=== PATIENT | female | born 1945 | race Caucasian/White ===

== ENCOUNTER 2017-01-13 11:56 | Emergency (ER) | payer MEDICARE ==
[~2017-01-13] VITALS: Ht 157.5 cm; Wt 73.2 kg
[~2017-01-13 11:56] MED LIST: ACET-2890 PO; ASCO-324 PO; BUPR-105 PO; CALC-727 PO; CHOL100055 PO; DILT180C51 PO; FLEC100T2 PO; HYDR-3989 PO; HYDR-4246 PO; RIVA20TA PO; VITA-321 PO; [UNRECOGNIZED DRUG - CODE] PO
[2017-01-13 11:58] VITALS: TEMP 97.8; Ht 157.5 cm; Wt 73.2 kg
--- NOTE | 2017-01-13 12:00 | NUR ---
HX PT IS POOR HISTORIAN. SHE KEEPS ANSWERING "I DON'T KNOW."
--- OUTSIDE RECORDS SUMMARY | 2017-01-13 12:00 | XMS REPORT | Referral Summary ---
Author Author [facility] Organization [facility] Address Unknown Phone Unavailable Care Team Providers Care Reconnaissance Crewmember Name Role Phone Rosalina Day Primary Care Physician [phone] Encounter VC Date(s): 05/16/16 - 05/16/16 [facility] [address] [place] [address] Discharge Disposition: 01-Home or Self Care Attending Physician: Aleks Chapa PA-C Admitting Physician: Aleks Chapa PA-C Vital Signs No data available for this section Problem List Condition Effective Dates Status Health Status Informant Polycythemia(Confirm Active ed) Gastric Active ulcer(Confirmed) History of TIA Active (transient ischemic attack)(Confirmed) Obesity(Confirmed) Active patient Paroxysmal Active a-fib(Confirmed) Tobacco Active patient user(Confirmed) Allergies, Adverse Reactions, Alerts Substance Reaction Severity Status penicillin Active Medications Arthritis Pain mg, Oral, q6hr, 0 Refill(s) Start Date: 07/25/15 Status: Ordered Calcium 600+D 2 tabs, Oral, TID, 0 Refill(s) Start Date: 11/23/14 Status: Ordered diltiazem 180 mg/24 hours oral capsule, extended release 180 mg 1 caps, Oral, Daily, # 90 caps, 3 Refill(s), [facility], 1 caps Oral Daily Start Date: 09/25/15 Status: Ordered flecainide 150 mg oral tablet 150 mg 1 tabs, Oral, q12hr, [facility]S [facility] [id number] GETS 90 TABS PER FILL FOR $35, # 90 tabs, 6 Refill(s), Pharmacy: [facility], 1 tabs Oral q12hr,Instr:[facility]LL[facility] [id number]; GETS 90 TABS PER FILL FOR $35 Start Date: 12/26/15 Status: Ordered Lamar 5 mg-325 mg oral tablet 1-2 tabs, Oral, q6hr, as needed for pain, # 30 tabs, 0 Refill(s) Start Date: 11/26/15 Status: Ordered ohm Allergy Relief 10 mg oral tablet 1 tabs, Oral, Daily, # 15 tabs, 0 Refill(s) Start Date: 11/23/14 Status: Ordered potassium gluconate 595 mg oral tablet 1 TABLET, Oral, BID, 0 Refill(s) Start Date: 01/05/15 Status: Ordered Vitamin C 500 mg oral tablet, chewable 1 tabs, Chewed, Daily, # 30 tabs, 0 Refill(s) Start Date: 01/05/15 Status: Ordered Vitamin D with Minerals oral tablet 1 tabs, Oral, Daily, # 30 tabs, 0 Refill(s) Start Date: 05/24/15 Status: Ordered Vitamin D3 1000 intl units oral capsule Intl_Units caps, Oral, Daily, 0 Refill(s) Start Date: 07/25/15 Status: Ordered vitamin E 400 Intl_Units, Oral, Daily, 0 Refill(s) Start Date: 11/20/14 Status: Ordered Walker (DME) DME Item indefinate, See Instructions, # 1 Each, 0 Refill(s), Supply Start Date: 05/16/16 Status: Ordered Xarelto 20 mg oral tablet 20 mg 1 tabs, Oral, qPM, # 30 tabs, 0 Refill(s), Pharmacy: [facility], 1 tabs Oral qPM Start Date: 05/05/16 Status: Ordered Zyban 150 mg/12 hours oral tablet, extended release 150 mg 1 tabs, Oral, BID, # 60 tabs, 2 Refill(s), Pharmacy: [facility], 1 tabs Oral BID Start Date: 12/03/15 Status: Ordered Results No data available for this section Immunizations No data available for this section Procedures Procedure Date Related Diagnosis Body Site Colonoscopy normal1 01/04/15 Esophagogastroduodenoscopy and biopsy2 01/04/15 TIA3 2001 Arthroscopy4 1998 Ablation5 1992 Breast lumpectomy6 Cataract extraction and insertion of intraocular lens7 Tonsillectomy 1Diverticulosis. Repeat in 10 years 2No Jaimes's, CLOtest a negative, benign gastric polyp. 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
--- OUTSIDE RECORDS SUMMARY | 2017-01-13 12:01 | XMS REPORT | Referral Summary ---
Author Author [facility] Organization [facility] Address Unknown Phone Unavailable Care Team Providers Care Supply Chain Project Manager Name Role Phone Rosalina Day Primary Care Physician [phone] Encounter VC Date(s): 05/26/16 - 05/26/16 [facility] [address] [place] [address] Discharge Diagnosis: Ankle sprain Discharge Disposition: 01-Home or Self Care Attending Physician: Cora Day DO Admitting Physician: Cora Day DO Vital Signs Most recent to 1 oldest [Reference Range]: Temperature Tympanic 36.9 degC [36.6-38.1 degC] (05/26/16 1:35 PM) Peripheral Pulse 78 bpm Rate [60-100 bpm] (05/26/16 1:35 PM) Respiratory Rate 18 br/min [14-20 br/min] (05/26/16 1:35 PM) Blood Pressure 120/70 mmHg [90-140/60-90 mmHg] (05/26/16 1:35 PM) SpO2 98 % (05/26/16 1:35 PM) Problem List Condition Effective Dates Status Health [...] Daily, # 90 caps, 3 Refill(s), Pharmacy: [facility], 1 caps Oral Daily Start Date: 09/25/15 Status: Ordered flecainide 150 mg oral tablet 150 mg 1 tabs, Oral, q12hr, [facility]S [facility] [id number] GETS 90 TABS PER FILL FOR $35, # 90 tabs, 6 Refill(s), Pharmacy: [facility], 1 tabs Oral q12hr,Instr:[facility] [id number]; GETS 90 TABS PER FILL FOR $35 Start Date: 12/26/15 Status: Ordered [place] 5 mg-325 mg oral tablet 1-2 tabs, [...] 0 Refill(s) Start Date: 11/20/14 Status: Ordered Xarelto 20 mg oral tablet 20 mg 1 tabs, Oral, qPM, # 30 tabs, 0 Refill(s), Pharmacy: [facility], 1 tabs Oral qPM Start Date: 05/05/16 Status: Ordered Zyban 150 mg/12 hours oral tablet, extended release 150 mg 1 tabs, Oral, BID, # 60 tabs, 2 Refill(s), Pharmacy: [facility], 1 tabs Oral BID Start [...] meniscus tear 5Ablation of accessory pathway for Ngluk-Ilzcugizv-Jcure syndrome 6Left breast 7Bilateral Social History Social History Type Response Smoking Status Current every day smoker; Type: Cigarettes; Tobacco use per day: Pack Assessment and Plan Extracted from: Title: Office Visit Note Author: Cora Day DO Date: 05/26/16 Assessment/Plan Ankle sprain Patient was able to weight-bear with no pain after removal of the brace. We discussed that she can use the brace on an as-needed basis from now on. We discussed that she should fill her bathtub with water and then do range of motion exercises underneath the water for rehabilitation of her ankle. She is to return to clinicwith any further symptomatology. Ordered: Office Visit Level 3 Est [id number]
--- OUTSIDE RECORDS SUMMARY | 2017-01-13 12:01 | XMS REPORT | Referral Summary ---
Author Author [facility] Organization [facility] Address Unknown Phone Unavailable Care Team Providers Care Precision Grinder Name Role Phone Rosalina Day Primary Care Physician [phone] Encounter VC Date(s): 05/24/15 - 05/24/15 [facility] [address] [place], [place] [address] Discharge Diagnosis: Paroxysmal a-fib Discharge Disposition: 01-Home or Self Care Attending Physician: Zoraida Ortiz MD Admitting Physician: Zoraida Ortiz MD Referring Physician: Onel Burris MD Vital Signs Most recent to 1 oldest [Reference Range]: Peripheral Pulse 64 bpm Rate [60-100 bpm] (05/24/15 11:25 AM) Blood Pressure 118/62 mmHg [90-140/60-90 mmHg] (05/24/15 11:25 AM) Problem List Condition Effective Dates Status Health [...] Daily, # 90 caps, 3 Refill(s), Pharmacy: [facility], 1 caps Oral Daily Start Date: 09/25/15 Status: Ordered flecainide 100 mg oral tablet 150 mg 1.5 tabs, Oral, q12hr, # 150 tabs, 5 Refill(s), Pharmacy: [facility], 1.5 tabs Oral q12hr Start Date: 02/23/15 Status: Ordered [place] 5 mg-325 mg oral tablet 1-2 tabs, [...] Status: Ordered Xarelto 20 mg oral tablet 1 tabs, Oral, qPM, # 30 tabs, 6 Refill(s), Pharmacy: [facility], 1 tabs Oral qPM Start Date: 01/05/15 Status: Ordered Zyban 150 mg/12 hours oral tablet, extended release 150 mg 1 tabs, Oral, BID, # 60 tabs, 2 Refill(s), Pharmacy: [facility], 1 tabs Oral BID Start [...] meniscus tear 5Ablation of accessory pathway for Vpeeo-Mcbzsvqki-Sjlik syndrome 6Left breast 7Bilateral Social History Social History Type Response Smoking Status Current every day smoker; Type: Cigarettes; Tobacco use per day: Pack Assessment and Plan Extracted from: Title: Office Visit Note Author: Zoraida Ortiz MD Date: 05/24/15 Assessment/Plan Paroxysmal a-fib Ordered: Return to Clinic Referrals to Other Providers Referred by: Zoraida Ortiz MD
--- OUTSIDE RECORDS SUMMARY | 2017-01-13 12:01 | XMS REPORT | Referral Summary ---
Author Author [facility], [facility] Organization [facility], [facility] Address Unknown Phone Unavailable Care Team Providers Care Portable Track Crew Chief Name Role Phone Rosalina Day Primary Care Physician [phone] Encounter VC Date(s): 05/16/16 - 05/16/16 [facility] [address] [place] [address] Discharge Diagnosis: Sprain of anterior talofibular ligament of right ankle Discharge Diagnosis: Fall at home Discharge Disposition: 01-Home or Self Care Attending Physician: Aleks Chapa PA-C Admitting Physician: Aleks Chapa PA-C Vital Signs Most recent to 1 oldest [Reference Range]: Peripheral Pulse 107 bpm Rate [60-100 bpm] *HI* (05/16/16 4:45 PM) Blood Pressure 142/80 mmHg [90-140/60-90 mmHg] *HI* (05/16/16 4:45 PM) SpO2 93 % (05/16/16 4:45 PM) Problem List Condition Effective Dates Status [...] Daily, # 90 caps, 3 Refill(s), Pharmacy: [facility], 1 caps Oral Daily Start Date: 09/25/15 Status: Ordered flecainide 150 mg oral tablet 150 mg 1 tabs, Oral, q12hr, [facility]ILLS [facility] [id number] GETS 90 TABS PER FILL FOR $35, # 90 tabs, 6 Refill(s), Pharmacy: [facility], 1 tabs Oral q12hr,Instr:[facility]LL[facility] [id number]; GETS 90 TABS PER FILL FOR $35 Start Date: 12/26/15 Status: Ordered [place] 5 mg-325 mg oral tablet 1-2 tabs, [...] 0 Refill(s) Start Date: 11/20/14 Status: Ordered Jason (DME) DME Item indefinate, See Instructions, # 1 Each, 0 Refill(s), Supply Start Date: 05/16/16 Status: Ordered Xarelto 20 mg oral tablet 20 mg 1 tabs, Oral, qPM, # 30 tabs, 0 Refill(s), Pharmacy: [facility], 1 tabs Oral qPM Start Date: 05/05/16 Status: Ordered Zyban 150 mg/12 hours oral tablet, extended release 150 mg 1 tabs, Oral, BID, # 60 tabs, 2 Refill(s), Pharmacy: [facility], 1 tabs Oral BID Start [...] meniscus tear 5Ablation of accessory pathway for Bhufi-Ginwjehrj-Xynjw syndrome 6Left breast 7Bilateral Social History Social History Type Response Smoking Status Current every day smoker; Type: Cigarettes; Tobacco use per day: Pack Assessment and Plan Extracted from: Title: Right foot and ankle injury Author: Aleks Chapa PA-C Date: 09/19 Assessment/Plan Acute ankle pain Recommended rest, ice, elevation. Recommended resumption of use of [place] as needed for the pain. Ordered: XR Ankle Complete Right XR Foot Complete Right Fall at home Sprain of anterior talofibular ligament of right ankle Pa tient wasfit witha rocket sock;handout was provided withstretching and exercises to begin his pain improves. Diagnosis and treatment discussed. Patient advised to follow up with PCP in 7-10 days. Patient stable upon discharge, alert and orientated with no apparent distress, and indicated understanding of discharge instructions. If symptoms worsen at any time, patient will go to the nearest ER for further evaluation.
--- OUTSIDE RECORDS SUMMARY | 2017-01-13 12:01 | XMS REPORT | Referral Summary ---
Author Author [facility] Organization [facility] Address Unknown Phone Unavailable Care Team Providers Care Train Station Server Name Role Phone Rupesh Burris Primary Care Physician [phone] Encounter Date(s): 02/16/15 - 02/16/15 [facility] [address] [place], [place] [address] Discharge Diagnosis: AF (paroxysmal atrial fibrillation) Discharge Disposition: 01-Home or Self Care Attending Physician: Rosio Thibodeaux APRN Admitting Physician: Rosio Thibodeaux APRN Referring Physician: Onel Burris MD Vital Signs Most recent to 1 oldest [Reference Range]: Peripheral Pulse 60 bpm Rate [60-100 bpm] (02/16/15 10:24 AM) Blood Pressure 132/62 mmHg [90-140/60-90 mmHg] (02/16/15 10:24 AM) Problem List Condition Effective Dates Status Health Status Informant Polycythemia(Confirm Active ed) Gastric Active ulcer(Confirmed) History of TIA Active (transient ischemic attack)(Confirmed) Obesity(Confirmed) Active patient Paroxysmal Active a-fib(Confirmed) Tobacco Active patient user(Confirmed) Allergies, Adverse Reactions, Alerts Substance Reaction Severity Status penicillin Active Medications Arthritis Pain mg, Oral, q6hr, 0 Refill(s) Start Date: 07/25/15 Status: Ordered Aspir 81 mg, Oral, Daily, 0 Refill(s) Start Date: 05/24/15 Status: Ordered aspirin 81 mg, 0 Refill(s) Start Date: 12/13/14 Status: Ordered Calcium 600+D 2 tabs, Oral, TID, 0 Refill(s) Start Date: 11/23/14 Status: Ordered diltiazem 180 mg/24 hours oral capsule, extended release 180 mg 1 caps, Oral, Daily, # 30 caps, 6 Refill(s), Pharmacy: [facility], 1 caps Oral Daily Start Date: 02/16/15 Status: Ordered flecainide 100 mg oral tablet 150 mg 1.5 tabs, Oral, q12hr, # 150 tabs, 5 Refill(s), Pharmacy: [facility], 1.5 tabs Oral q12hr Start Date: 02/23/15 Status: Ordered ohm Allergy Relief 10 mg oral tablet 1 tabs, Oral, Daily, # 15 tabs, 0 Refill(s) Start Date: 11/23/14 Status: Ordered omeprazole 20 mg oral delayed release capsule See Instructions, TAKE ONE CAPSULE BY MOUTH ONCE DAILY, # 60 caps, eRx: [facility], TAKE ONE CAPSULE BY MOUTH ONCE DAILY Start Date: 07/27/15 Status: Ordered potassium gluconate 595 mg oral tablet 1 TABLET, Oral, BID, 0 Refill(s) Start Date: 01/05/15 Status: Ordered Vitamin C 250 mg, Oral, Daily, 0 Refill(s) Start Date: 05/24/15 Status: Ordered Vitamin C 500 mg oral [...] qPM, # 30 tabs, 6 Refill(s), Pharmacy: [facility], 1 tabs Oral qPM Start Date: 01/05/15 Status: Ordered Results No data available for [...] meniscus tear 5Ablation of accessory pathway for Noocn-Eoukoetxc-Yudzb syndrome 6Left breast 7Bilateral Social History Social History Type Response Smoking Status Current every day smoker; Type: Cigarettes; Tobacco use per day: Pack Assessment and Plan Extracted from: Title: Ambulatory Patient Education Author: Rosio Thibodeaux [employer] Date: Family Medicine Atrial Fibrillation Atrial fibrillation is a condition that causes your heart to beat irregularly. It may also cause your heart to beat faster than normal. Atrial fibrillation can prevent your heart from pumping blood normally. It increases your risk of stroke and heart problems. HOME CARE Take medications as told by your doctor. Only take medications that your doctor says are safe. Some medications can make the condition worse or happen again. If blood thinners were prescribed by your doctor, take them exactly as told. Too much can cause bleeding. Too little and you will not have the needed protection against stroke and other problems. Perform blood tests at home if told by your doctor. Perform blood tests exactly as told by your doctor. Do not drink alcohol. Do not drink beverages with caffeine such as coffee, soda, and some teas. Maintain a healthy weight. Do not use diet pills unless your doctor says they are safe. They may make heart problems worse. Follow diet instructions as told by your doctor. Exercise regularly as told by your doctor. Keep all follow-up appointments. GET HELP RIGHT AWAY IF: You have chest or belly (abdominal ) pain. You feel sick to your stomach (nauseous ) You suddenly have swollen feet and ankles. You feel dizzy. You face, arms, or legs feel numb or weak. There is a change in your vision or speech. You notice a change in the speed, rhythm, or strength of your heartbeat. You suddenly begin peeing (urinating ) more often. You get tired more easily when moving or exercising. MAKE SURE YOU: Understand these instructions. Will watch your condition. Will get help right away if you are not doing well or get worse. Document Released: 06/30/2009 Document Revised: 01/16/2014 Document Reviewed: [facility] Patient Information 2014 [employer] [facility]. No follow up information was provided. Extracted from: Title: Office Visit Note Author: Rosio Thibodeaux APRN Date: 02/16/15 Assessment/Plan AF (paroxysmal atrial fibrillation) Referrals to Other Providers Referred by: Rosio Thibodeaux APRN
--- OUTSIDE RECORDS SUMMARY | 2017-01-13 12:01 | XMS REPORT | Referral Summary ---
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 Discharge Diagnosis: History of TIA (transient ischemic attack) Discharge Diagnosis: Tobacco user Discharge Disposition: 01-Home or Self Care Attending Physician: Zoraida Ortiz MD Admitting Physician: Zoraida Ortiz MD Vital Signs Most recent to 1 oldest [Reference Range]: Peripheral Pulse 68 bpm Rate [60-100 bpm] (05/27/16 11:19 AM) Blood Pressure 126/70 mmHg [90-140/60-90 mmHg] (05/27/16 11:19 AM) Problem List Condition Effective Dates Status Health Status Informant Polycythemia(Confirm Active ed) Gastric Active ulcer(Confirmed) History of TIA Active (transient ischemic attack)(Confirmed) Obesity(Confirmed) Active patient Paroxysmal Active a-fib(Confirmed) Tobacco Active patient user(Confirmed) Allergies, Adverse Reactions, Alerts Substance Reaction Severity Status penicillin Active Medications Arthritis Pain 650 mg, Oral, BID, 0 Refill(s) Start Date: 07/25/15 Status: Ordered Calcium 600+D 2 tabs, Oral, TID, 0 Refill(s) Start Date: 11/23/14 Status: Ordered diltiazem 180 mg/24 hours oral capsule, extended release 180 mg 1 caps, Oral, Daily, # 90 caps, 3 Refill(s), Pharmacy: [facility], 1 caps Oral Daily Start Date: 09/25/15 Status: Ordered flecainide 150 mg oral tablet 150 mg 1 tabs, Oral, q12hr, FILLS [facility] [id number] GETS 90 TABS PER FILL FOR $35, # 90 tabs, 6 Refill(s), Pharmacy: [facility], 1 tabs Oral q12hr,Instr:[facility]LLS [facility] [id number]; GETS 90 TABS PER FILL FOR $35 Start Date: 12/26/15 Status: Ordered [place] 5 mg-325 mg oral tablet 1-2 tabs, Oral, q6hr, as needed for pain, # 30 tabs, 0 Refill(s) Start Date: 11/26/15 Status: Ordered ohm Allergy Relief 10 mg oral tablet 1 tabs, Oral, Daily, # 15 tabs, 0 Refill(s) Start Date: 11/23/14 Status: Ordered potassium gluconate 595 mg oral tablet 2 tabs, Oral, Daily, 0 Refill(s) Start Date: 01/05/15 Status: Ordered Tums Ultra 1000 mg oral tablet, chewable See Instructions, 1,000 mg 2-3 tabs daily, 0 Refill(s) Start Date: 05/27/16 Status: Ordered Vitamin C 500 mg oral tablet, chewable 1 tabs, Chewed, Daily, # 30 tabs, 0 Refill(s) Start Date: 01/05/15 Status: Ordered Vitamin D with Minerals oral tablet 1 tabs, Oral, Daily, # 30 tabs, 0 Refill(s) Start Date: 05/24/15 Status: Ordered Vitamin D3 1000 intl units oral capsule 1,000 Intl_Units 1 caps, Oral, Daily, 0 Refill(s) Start Date: 07/25/15 Status: Ordered vitamin E 400 Intl_Units, Oral, Daily, 0 Refill(s) Start Date: 11/20/14 Status: Ordered Xarelto 20 mg oral tablet 20 mg 1 tabs, Oral, qPM, # 30 tabs, 0 Refill(s), Pharmacy: [facility], 1 tabs Oral qPM Start Date: 05/05/16 Status: Ordered Zyban 150 mg/12 hours oral tablet, extended release 150 mg 1 tabs, Oral, BID, # 60 tabs, 2 Refill(s), Pharmacy: [facility], 1 tabs Oral BID Start [...] meniscus tear 5Ablation of accessory pathway for Xkbgf-Lczwarbee-Opsix syndrome 6Left breast 7Bilateral Social History Social History Type Response Smoking Status Current every day smoker; Type: Cigarettes; Tobacco use per day: Pack Assessment and Plan Extracted from: Title: Ambulatory Patient Education Author: Zoraida Ortiz MD Date: Cardiovascular Atrial Fibrillation Atrial fibrillation is a condition [...] doctor. Keep all follow-up appointments. GET HELP IF: You notice a change in the speed, rhythm, or strength of your heartbeat. You suddenly begin peeing (urinating) more often. You get tired more easily when moving or exercising. GET HELP RIGHT AWAY IF: You have chest or belly (abdominal) pain. You feel sick to your stomach (nauseous). You are short of breath. You suddenly have swollen feet and ankles. You feel dizzy. You face, arms, or legs feel numb or weak. There is a change in your vision or speech. MAKE SURE YOU: Understand these instructions. Will watch your condition. Will get help right away if you are not doing well or get worse. This information is not intended to replace advice given to you by your health care provider. Make sure you discuss any questions you have with your health care provider. Document Released: 06/30/2009 Document Revised: 10/12/2015 Document Reviewed: [facility] Patient Information 2016 [employer] [facility]. No follow up information was provided. Extracted from: Title: Office Visit Note Author: Zoraida Ortiz MD Date: 05/27/16 Assessment/Plan 1.Paroxysmal a-fib Ordered: Office Visit Level 3 Est [id number] Return to Clinic 2.History of TIA (transient ischemic attack) 3.Tobacco user 4.S/p ablation of accessory bypass tract Dictation performed with Blooie voice recognition Referrals to Other Providers Referred by: Zoraida Ortiz MD
--- OUTSIDE RECORDS SUMMARY | 2017-01-13 12:01 | XMS REPORT | Referral Summary ---
Author Author [facility], Family Medicine Organization [facility] Address Unknown Phone Unavailable Care Team Providers Care Operations Forester Name Role Phone Rosalina Day Primary Care Physician [phone] Encounter VC Date(s): 12/03/15 - 12/03/15 [facility], [address] [place] [id number] Discharge Diagnosis: Tobacco user Discharge Diagnosis: Paroxysmal a-fib Discharge Diagnosis: Musculoskeletal chest pain Discharge Disposition: 01-Home or Self Care Attending Physician: Cora Day DO Admitting Physician: Cora Day DO Vital Signs Most recent to 1 oldest [Reference Range]: Peripheral Pulse 70 bpm Rate [60-100 bpm] (12/03/15 9:25 AM) Respiratory Rate 18 br/min [14-20 br/min] (12/03/15 9:25 AM) Blood Pressure 112/68 mmHg [90-140/60-90 mmHg] (12/03/15 9:25 AM) SpO2 93 % (12/03/15 9:25 AM) Problem List Condition Effective Dates Status [...] Daily, # 90 caps, 3 Refill(s), Pharmacy: [facility], 1 caps Oral Daily Start Date: 09/25/15 Status: Ordered flecainide 100 mg oral tablet 150 mg 1.5 tabs, Oral, q12hr, # 150 tabs, 5 Refill(s), Pharmacy: [facility], 1.5 tabs Oral q12hr Start Date: 02/23/15 Status: Ordered [place] 5 mg-325 mg oral tablet 1-2 tabs, [...] qPM, # 30 tabs, 6 Refill(s), Pharmacy: [facility], 1 tabs Oral qPM Start Date: 01/05/15 Status: Ordered Zyban 150 mg/12 hours oral tablet, extended release 150 mg 1 tabs, Oral, BID, # 60 tabs, 2 Refill(s), Pharmacy: [facility], 1 tabs Oral BID [...] meniscus tear 5Ablation of accessory pathway for Uvkgt-Kycmuafhe-Hmnui syndrome 6Left breast 7Bilateral Social History Social History Type Response Smoking Status Current every day smoker; Type: Cigarettes; Tobacco use per day: Pack Assessment and Plan Extracted from: Title: Office Visit Note Author: Cora Day DO Date: 12/03/15 Assessment/Plan Musculoskeletal chest pain Patient is advised to try capsaicin cream return to clinic if not improving. Ordered: Office Visit Level 4 Est 64465 Paroxysmal a-fib Heart rate regular today with no irregularities in the ER. Ordered: Office Visit Level 4 Est 81353 Tobacco user ContinueZybantwice a day. Return to clinic in 3 months. Ordered: Office Visit Level 4 Est 53964 Orders: buPROPion, 150 mg 1 tabs, Oral, BID, # 60 tabs, 2 Refill(s), Pharmacy : [facility], 1 tabs Oral BID
--- OUTSIDE RECORDS SUMMARY | 2017-01-13 12:01 | XMS REPORT | Referral Summary ---
Author Organization Unknown Address Unknown Phone Unavailable Care Team Providers Care Press Officer Name Role Phone No PCP, States Primary Care Physician [phone] Encounter VC Date(s): 11/20/14 - 11/20/14 [facility] [place], Internal Medicine [address] [place] [address] [place], [place] [address] Discharge Diagnosis: Abdominal pain Discharge Diagnosis: Chronic cough Discharge Diagnosis: Cardiac arrhythmia Discharge Diagnosis: GERD (gastroesophageal reflux disease) Discharge Disposition: Home or Self Care Attending Physician: Onel Burris MD Admitting Physician: Onel Burris MD Vital Signs Most recent to 1 oldest [Reference Range]: Temperature Tympanic 35 degC [36.6-38.1 degC] *LOW* (11/20/14 3:40 PM) Peripheral Pulse 102 bpm Rate [60-100 bpm] *HI* (11/20/14 3:40 PM) Blood Pressure 122/76 mmHg [90-140/60-90 mmHg] (11/20/14 3:40 PM) Problem List Condition Effective Dates Status Health Status Informant Obesity(Confirmed) Active patient Tobacco Active patient user(Confirmed) Allergies, Adverse Reactions, Alerts Substance Reaction Severity Status penicillin Active Medications Arthritis Pain 650 mg, Oral, Daily, TAKE 2 TABLETS PER DAY, 0 Refill(s) Special Instructions: TAKE 2 TABLETS PER DAY Start Date: 11/20/14 Status: Ordered Benadryl 0 Refill(s) Start Date: 11/20/14 Status: Ordered omeprazole 20 mg oral delayed release capsule 1 caps, Oral, Daily, # 30 caps, 0 Refill(s), Pharmacy: [facility], 1 caps Oral Daily,x30 days Start Date: 11/20/14 Stop Date: 12/20/14 Status: Ordered potassium iodide mg, Oral, Daily, 0 Refill(s) Start Date: 11/20/14 Status: Ordered vitamin E Oral, Daily, 0 Refill(s) Start Date: 11/20/14 Status: Ordered Results Hematology Most recent to 1 oldest [Reference Range]: WBC [4.8-10.8 K/uL] 8.8 K/uL (11/20/14 5:05 PM) RBC [4.00-5.20 M/uL] 5.49 M/uL *HI* (11/20/14 5:05 PM) Hgb [12.0-16.0 17.2 gm/dL gm/dL] *HI* (11/20/14 5:05 PM) Hct [37.0-47.0 %] 50.9 % *HI* (11/20/14 5:05 PM) MCV [82.0-99.0 fL] 92.7 fL (11/20/14 5:05 PM) MCH [27.0-32.0 pg] 31.3 pg (11/20/14 5:05 PM) MCHC [32.0-36.0 33.8 gm/dL gm/dL] (11/20/14 5:05 PM) RDW [11.5-14.5 %] 13.6 % (11/20/14 5:05 PM) Platelet [150-400 209 K/uL K/uL] (11/20/14 5:05 PM) MPV [8.8-14.8 fL] 9.6 fL (11/20/14 5:05 PM) Neutrophils [51-75 56 % %] (11/20/14 5:05 PM) Lymphocytes [20-46 35 % %] (11/20/14 5:05 PM) Monocytes [4-11 %] 7 % (11/20/14 5:05 PM) Eosinophils [0-4 %] 2 % (11/20/14 5:05 PM) Basophils [0-2 %] 1 % (11/20/14 5:05 PM) Neutro Absolute 4.94 THOUS [1.90-7.00 THOUS] (11/20/14 5:05 PM) Lymph Absolute 3.05 THOUS [0.80-3.30 THOUS] (11/20/14 5:05 PM) [place] Absolute 0.62 THOUS [0.30-1.00 THOUS] (11/20/14 5:05 PM) Eos Absolute 0.13 THOUS [0.00-0.50 THOUS] (11/20/14 5:05 PM) Baso Absolute 0.04 THOUS [0.00-0.20 THOUS] (11/20/14 5:05 PM) Immunizations No data available for this section Procedures Procedure Date Related Diagnosis Body Site TIA1 2001 Arthroscopy2 1998 Septal defect, heart3 1995 Breast lumpectomy4 Cataract extraction and insertion of intraocular lens5 Tonsillectomy 1Hospitalization 2Arthroscopy of right knee for meniscus tear 3She has some type of procedure to repair a hole in her heart 4Left breast 5Bilateral Social History Social History Type Response Smoking Status Current every day smoker; Type: Cigarettes; Tobacco use per day: Pack Assessment and Plan Extracted from: Title: Ambulatory Patient Education Author: Onel Burris MD Date: Family Medicine Abdominal Pain Abdominal pain can be caused by many things. Your caregiver decides the seriousness of your pain by an examination and possibly blood tests and X-rays. Many cases can be observed and treated at home. Most abdominal pain is not caused by a disease and will probably improve without treatment. However, in many cases, more time must pass before a clear cause of the pain can be found. Before that point, it may not be known if you need more testing, or if hospitalization or surgery is needed. HOME CARE INSTRUCTIONS Do not take laxatives unless directed by your caregiver. Take pain medicine only as directed by your caregiver. Only take hcdk-oic-wzxwqdm or prescription medicines for pain, discomfort, or fever as directed by your caregiver. Try a clear liquid diet (broth, tea, or water) for as long as directed by your caregiver. Slowly move to a bland diet as tolerated. SEEK IMMEDIATE MEDICAL CARE IF: The pain does not go away. You have a fever. You keep throwing up (vomiting ). The pain is felt only in portions of the abdomen. Pain in the right side could possibly be appendicitis. In an adult, pain in the left lower portion of the abdomen could be colitis or diverticulitis. You pass bloody or black tarry stools. MAKE SURE YOU: Understand these instructions. Will watch your condition. Will get help right away if you are not doing well or get worse. Document Released: 07/01/2006 Document Revised: 12/13/2012 Document Reviewed: [employer] Patient Information 2014 [employer] Follow Up With: Where: When: Pt States No PCP [address] [place] [id number] Business (1) Within 3 to 5 days Comments: Extracted from: Title: Office Visit Note Author: Onel Burris MD Date: 11/20/14 Assessment/Plan Abdominal pain Lab for studies will be checked. Ordered: Amylase Level Lipase Level Office Visit Level 3 New 96313 Cardiac arrhythmia EKG and troponin I level will be checked. Ordered: EKG with Interpretation 95657 Office Visit Level 3 New 87384 Chronic cough Chest x-ray will be obtained. Ordered: CBC w/ Differential Comprehensive Metabolic Panel H. pylori ab, IgG, IgM, and IgA Office Visit Level 3 New 31891 Troponin TSH 3rd Generation XR Chest 2 Views GERD (gastroesophageal reflux disease) She will be placed on omeprazole. She will be scheduled see Dr. Box regarding EGD. Ordered: Office Visit Level 3 New [id number] Orders: omeprazole, 1 caps, Oral, Daily, # 30 caps, 0 Refill(s), Pharmacy: [facility], 1 caps Oral Daily,x30 days Addendum Nicotine addiction. Discussion was held with her regarding discontinuing smoking. by She was provided some information on Chantix but this was not prescribed yet pending Fatuma, results of the other tests. Onel Goddard MD on 20 November 2014 16:54:41 STUDY LEAD Addendum EKG showed atrial fibrillation. Troponin I level and TSH levels were normal. INR was by normal. 2-D echocardiogram will be scheduled. Stools will be checked for occult Burris, blood. Cardiology consultation will be scheduled. Onel Goddard MD on 20 November 2014 22:18:21 STUDY LEAD
--- OUTSIDE RECORDS SUMMARY | 2017-01-13 12:01 | XMS REPORT | Referral Summary ---
Author Organization Unknown Address Unknown Phone Unavailable Care Team Providers Care Proposal Lead Writer Name Role Phone Rupesh Burris Primary Care Physician [phone] Encounter VC Date(s): 01/29/15 - 01/29/15 [facility], [place], Cardiology [address] [place], [place] [address] Discharge Disposition: Home or Self Care Attending Physician: Zoraida Ortiz MD Admitting Physician: Zoraida Ortiz MD Referring Physician: Onel Burris MD Vital Signs No data available for this section Problem List Condition Effective Dates Status Health Status Informant Polycythemia(Confirm Active ed) Gastric Active ulcer(Confirmed) History of TIA Active (transient ischemic attack)(Confirmed) Obesity(Confirmed) Active patient Paroxysmal Active a-fib(Confirmed) Tobacco Active patient user(Confirmed) Allergies, Adverse Reactions, Alerts Substance Reaction Severity Status penicillin Active Medications aspirin 81 mg, 0 Refill(s) Start Date: 12/13/14 Status: Ordered Calcium 600+D 2 tabs, Oral, TID, 0 Refill(s) Start Date: 11/23/14 Status: Ordered diltiazem 120 mg/12 hours oral capsule, extended release 1 caps, Oral, Daily, # 30 caps, 6 Refill(s), Pharmacy: [facility], Please disregard tablets. Needs capsules. Thank you., 1 caps Oral Daily Start Date: 01/05/15 Status: Ordered Drisdol 50,000 intl units (1.25 mg) oral capsule 1 caps, Oral, q4wk, # 8 Each, 0 Refill(s), Pharmacy: [facility], 1 caps Oral q4wk Start Date: 12/04/14 Status: Ordered flecainide 100 mg oral tablet 1.5 tabs, Oral, q12hr, # 90 tabs, 2 Refill(s), Pharmacy: [facility] , 1.5 tabs Oral q12hr Start Date: 01/09/15 Status: Ordered ohm Allergy Relief 10 mg oral tablet 1 tabs, Oral, Daily, # 15 tabs, 0 Refill(s) Start Date: 11/23/14 Status: Ordered omeprazole 20 mg oral delayed release capsule See Instructions, 1 caps Oral Daily,x30 days, # 60 caps, 1 Refill(s), Pharmacy: [facility], 1 caps Oral Daily,x30 days Special Instructions: 1 caps Oral Daily,x30 days Start Date: 01/29/15 Status: Ordered potassium gluconate 595 mg oral tablet 1 TABLET, Oral, BID, 0 Refill(s) Start Date: 01/05/15 Status: Ordered Tylenol Arthritis Caplet 650 mg oral tablet, extended release 2 tabs, Oral, q8hr, 0 Refill(s) Start Date: 01/05/15 Status: Ordered Vitamin C 500 mg oral tablet, chewable 1 tabs, Chewed, Daily, # 30 tabs, 0 Refill(s) Start Date: 01/05/15 Status: Ordered vitamin E 400 Intl_Units, Oral, Daily, 0 Refill(s) Start Date: 11/20/14 Status: Ordered Xarelto 20 mg oral tablet 1 tabs, Oral, qPM, # 30 tabs, 6 Refill(s), Pharmacy: [facility], 1 tabs Oral qPM [...] meniscus tear 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
--- OUTSIDE RECORDS SUMMARY | 2017-01-13 12:01 | XMS REPORT | Referral Summary ---
Author Author [facility], Family Medicine Organization [facility] Address Unknown Phone Unavailable Care Team Providers Care Geospatial Program Management Officer Name Role Phone Rosalina Day Primary Care Physician [phone] Encounter VC Date(s): 11/24/16 - 11/24/16 [facility], [address] [place] [address] Discharge Diagnosis: COPD with acute exacerbation Discharge Disposition: 01-Home or Self Care Attending Physician: Cora Day DO Vital Signs Most recent to 1 oldest [Reference Range]: Temperature Oral 36.8 degC [35.8-37.3 degC] (11/24/16 4:30 PM) Peripheral Pulse 88 bpm Rate [60-100 bpm] (11/24/16 4:30 PM) Respiratory Rate 18 br/min [14-20 br/min] (11/24/16 4:30 PM) Blood Pressure 128/86 mmHg [90-140/60-90 mmHg] (11/24/16 4:30 PM) SpO2 92 % (11/24/16 4:30 PM) Problem List Condition Effective Dates Status Health Status Informant COPD with acute Active exacerbation(Confirm ed) Polycythemia(Confirm Active ed) Gastric Active ulcer(Confirmed) History of TIA Active (transient ischemic attack)(Confirmed) Obesity(Confirmed) Active patient Paroxysmal Active a-fib(Confirmed) Tobacco Active patient user(Confirmed) Allergies, Adverse Reactions, Alerts Substance Reaction Severity Status penicillin Active Medications Arthritis Pain 650 mg, Oral, BID, 0 Refill(s) Start Date: 07/25/15 Status: Ordered Calcium 600+D 2 tabs, Oral, TID, 0 Refill(s) Start Date: 11/23/14 Status: Ordered Cartia XT 180 mg/24 hours oral capsule, extended release See Instructions, TAKE ONE CAPSULE BY MOUTH ONCE DAILY, # 90 caps, 1 Refill(s), eRx: [facility], TAKE ONE CAPSULE BY MOUTH ONCE DAILY Start Date: 11/03/16 Status: Ordered doxycycline monohydrate 100 mg oral capsule 100 mg 1 caps, Oral, Daily, X 10 days, # 10 caps, 0 Refill(s), Pharmacy: [facility], 1 caps Oral Daily,x10 days Start Date: 11/24/16 Stop Date: 12/04/16 Status: Ordered DuoNeb 0.5 mg-2.5 mg/3 mL inhalation solution 3 mL, NEB, q6hr, as needed for shortness of breath or wheezing, # 180 mL, 2 Refill(s), Pharmacy: [facility] Start Date: 11/10/16 Status: Ordered flecainide 150 mg oral tablet 150 mg 1 tabs, Oral, q12hr, FILLS THROUGH [facility] [id number] GETS 90 TABS PER FILL FOR $35, # 90 tabs, 6 Refill(s), Pharmacy: [facility], 1 tabs Oral q12hr,Instr:[facility]LLS [facility] [id number]; GETS 90 TABS PER FILL FOR $35 Start Date: 12/26/15 Status: Ordered Mucinex DM 30 mg-600 mg oral tablet, extended release tabs, Oral, q12hr, 0 Refill(s) Start Date: 11/10/16 Status: Ordered ohm Allergy Relief 10 mg oral tablet 1 tabs, Oral, Daily, # 15 tabs, 0 Refill(s) Start Date: 11/23/14 Status: Ordered potassium gluconate 595 mg oral tablet 2 tabs, Oral, Daily, 0 Refill(s) Start Date: 01/05/15 Status: Ordered predniSONE 20 mg oral tablet See Instructions, 80mg X 4 days 60mg X 4 days 40mg X 4 days 20mg X 4 days 10mg X 4 days, # 45 tabs, 0 Refill(s), Pharmacy: [facility], 80mg X 4 days; 60mg X 4 days; 40mg X 4 days; 20mg X 4 days; 10mg X 4 days Start Date: 11/24/16 Status: Ordered Tums Ultra 1000 mg oral [...] Status: Ordered Xarelto 20 mg oral tablet See Instructions, TAKE ONE TABLET BY MOUTH ONCE DAILY IN THE EVENING, # 30 tabs , 8 Refill(s), [facility] Start Date: 10/23/16 Status: Ordered Results No data available for [...] meniscus tear 5Ablation of accessory pathway for Aznqr-Pupdltwnc-Ushpp syndrome 6Left breast 7Bilateral Social History Social History Type Response Smoking Status Current every day smoker; Type: Cigarettes; Tobacco use per day: Pack Assessment and Plan Extracted from: Title: ACUTE COPD exac Author: Cora Day DO Date: 11/24/16 Assessment/Plan COPD with acute exacerbation Patient is in COPD exacerbation again. We will give her doxycycline and she had Levaquin last time. We will give her a longer steroid taper. I have also provided patient with Advair 250/50 samples to try. She will call us if she likes these. She should present to the emergency department with any significant respiratory distress. Ordered: Office Visit Level 4 Est 93974 Cough Ordered: doxycycline, 100 mg 1 caps, Oral, Daily, X 10 days, # 10 caps, 0 Refill(s), Pharmacy: [facility], 1 caps Oral Daily,x10 days
--- OUTSIDE RECORDS SUMMARY | 2017-01-13 12:01 | XMS REPORT | Referral Summary ---
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 Name Role Phone BarbRosalina Primary Care Physician [phone] Encounter VC Date(s): 07/25/15 - 07/25/15 [facility] [address] [place] [address] [place] [id number] Discharge Diagnosis: Nicotine addiction Discharge Disposition: 01-Home or Self Care Attending Physician: Onel Burris MD Admitting Physician: Onel Burris MD Vital Signs Most recent to 1 oldest [Reference Range]: Temperature Tympanic 37.6 degC [36.6-38.1 degC] (07/25/15 10:01 AM) Peripheral Pulse 81 bpm Rate [60-100 bpm] (07/25/15 10:01 AM) Blood Pressure 120/66 mmHg [90-140/60-90 mmHg] (07/25/15 10:01 AM) SpO2 93 % (07/25/15 10:01 AM) Problem List Condition Effective Dates Status [...] Daily, # 90 caps, 3 Refill(s), Pharmacy: [id number], 1 caps Oral Daily Start Date: 09/25/15 Status: Ordered flecainide 150 mg oral tablet 150 mg 1 tabs, Oral, q12hr, FILLS THROUGH [facility] [id number] GETS 90 TABS PER FILL FOR $35, # 90 tabs, 6 Refill(s), Pharmacy: [facility], 1 tabs Oral q12hr,Instr:FILLS THROUGH [facility] [id number]; GETS 90 TABS PER FILL FOR $35 Start Date: 12/26/15 Status: Ordered Leakey 5 mg-325 mg oral tablet 1-2 tabs, [...] qPM, # 30 tabs, 6 Refill(s), Pharmacy: [facility], 1 tabs Oral qPM Start Date: 01/05/15 Status: Ordered Zyban 150 mg/12 hours oral tablet, extended release 150 mg 1 tabs, Oral, BID, # 60 tabs, 2 Refill(s), Pharmacy: [facility], 1 tabs Oral BID [...] meniscus tear 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 However, it is not always easy to quit since nicotine is a very addictive drug. Oftentimes, people try 3 times or more before being able to quit. This document explains the best ways for you to prepare to quit smoking. Quitting takes hard work and a lot of effort, but you can do it. ADVANTAGES OF QUITTING SMOKING You will live longer, feel better, and live better. Your body will feel the impact of quitting smoking almost immediately. Within 20 minutes, blood pressure decreases. Your pulse returns to its normal level. After 8 hours, carbon monoxide levels in the blood return to normal. Your oxygen level increases. After 24 hours, the chance of having a heart attack starts to decrease. Your breath, hair, and body stop smelling like smoke. After 48 hours, damaged nerve endings begin to recover. Your sense of taste and smell improve. After 72 hours, the body is virtually free of nicotine. Your bronchial tubes relax and breathing becomes easier. After 2 to 12 weeks, lungs can hold more air. Exercise becomes easier and circulation improves. The risk of having a heart attack, stroke, cancer, or lung disease is greatly reduced. After 1 year, the risk of coronary heart disease is cut in half. After 5 years, the risk of stroke falls to the same as a nonsmoker. After 10 years, the risk of lung cancer is cut in half and the risk of other cancers decreases significantly. After 15 years, the risk of coronary heart disease drops, usually to the level of a nonsmoker. If you are , quitting smoking will improve your chances of having a healthy baby. The people you live with, especially any children, will be healthier. You will have extra money to spend on things other than cigarettes. QUESTIONS TO THINK ABOUT BEFORE ATTEMPTING TO QUIT You may want to talk about your answers with your health care provider. Why do you want to quit? If you tried to quit in the past, what helped and what did not? What will be the most difficult situations for you after you quit? How will you plan to handle them? Who can help you through the tough times? Your family? Friends? A health care provider? What pleasures do you get from smoking? What ways can you still get pleasure if you quit? Here are some questions to ask your health care provider: How can you help me to be successful at quitting? What medicine do you think would be best for me and how should I take it? What should I do if I need more help? What is smoking withdrawal like? How can I get information on withdrawal? GET READY Set a quit date. Change your environment by getting rid of all cigarettes, ashtrays, matches , and lighters in your home, car, or work. Do not let people smoke in your home. Review your past attempts to quit. Think about what worked and what did not. GET SUPPORT AND ENCOURAGEMENT You have a better chance of being successful if you have help. You can get support in many ways. Tell your family, friends, and coworkers that you are going to quit and need their support. Ask them not to smoke around you. Get individual, group, or telephone counseling and support. Programs are available at local hospitals and health centers. Call your local health department for information about programs in your area. Spiritual beliefs and practices may help some smokers quit. Download a "quit meter" on your computer to keep track of quit statistics, such as how long you have gone without smoking, cigarettes not smoked, and money saved. Get a self-help book about quitting smoking and staying off tobacco. LEARN NEW SKILLS AND BEHAVIORS Distract yourself from urges to smoke. Talk to someone, go for a walk, or occupy your time with a task. Change your normal routine. Take a different route to work. Drink tea instead of coffee. Eat breakfast in a different place. Reduce your stress. Take a hot bath, exercise, or read a book. Plan something enjoyable to do every day. Reward yourself for not smoking. Explore interactive web-based programs that specialize in helping you quit. GET MEDICINE AND USE IT CORRECTLY Medicines can help you stop smoking and decrease the urge to smoke. Combining medicine with the above behavioral methods and support can greatly increase your chances of successfully quitting smoking. Nicotine replacement therapy helps deliver nicotine to your body without the negative effects and risks of smoking. Nicotine replacement therapy includes nicotine gum, lozenges, inhalers, nasal sprays, and skin patches. Some may be available vzzl-mng-[id number] and others require a prescription. Antidepressant medicine helps people abstain from smoking, but how this works is unknown. This medicine is available by prescription. Nicotinic receptor partial agonist medicine simulates the effect of nicotine in your brain. This medicine is available by prescription. Ask your health care provider for advice about which medicines to use and how to use them based on your health history. Your health care provider will tell you what side effects to look out for if you choose to be on a medicine or therapy. Carefully read the information on the package. Do not use any other product containing nicotine while using a nicotine replacement product. RELAPSE OR DIFFICULT SITUATIONS Most relapses occur within the first 3 months after quitting. Do not be discouraged if you start smoking again. Remember, most people try several times before finally quitting. You may have symptoms of withdrawal because your body is used to nicotine. You may crave cigarettes, be irritable, feel very hungry, cough often, get headaches, or have difficulty concentrating. The withdrawal symptoms are only temporary. They are strongest when you first quit, but they will go away within 1014 days. To reduce the chances of relapse, try to: Avoid drinking alcohol. Drinking lowers your chances of successfully quitting. Reduce the amount of caffeine you consume. Once you quit smoking, the amount of caffeine in your body increases and can give you symptoms, such as a rapid heartbeat, sweating, and anxiety. Avoid smokers because they can make you want to smoke. Do not let weight gain distract you. Many smokers will gain weight when they quit, usually less than 10 pounds. Eat a healthy diet and stay active. You can always lose the weight gained after you quit. Find ways to improve your mood other than smoking. FOR MORE INFORMATION www.smokefree.gov Document Released: 09/15/2002 Document Revised: 02/05/2015 Document Reviewed: ExitCare Patient Information 2015 [facility], [facility]. This information is not intended to replace advice given to you by your health care provider. Make sure you discuss any questions you have with your health care provider. Smoking Cessation, Tips for Success If you are ready to quit smoking, congratulations! You have chosen to help yourself be healthier. Cigarettes bring nicotine, tar, carbon monoxide, and other irritants into your body. Your lungs, heart, and blood vessels will be able to work better without these poisons. There are many different ways to quit smoking. Nicotine gum, nicotine patches, a nicotine inhaler, or nicotine nasal spray can help with physical craving. Hypnosis, support groups, and medicines help break the habit of smoking. WHAT THINGS CAN I DO TO MAKE QUITTING EASIER? Here are some tips to help you quit for good: Pick a date when you will quit smoking completely. Tell all of your friends and family about your plan to quit on that date. Do not try to slowly cut down on the number of cigarettes you are smoking. Pick a quit date and quit smoking completely starting on that day. Throw away all cigarettes. Clean and remove all ashtrays from your home, work, and car. On a card, write down your reasons for quitting. Carry the card with you and read it when you get the urge to smoke. Cleanse your body of nicotine. Drink enough water and fluids to keep your urine clear or pale yellow. Do this after quitting to flush the nicotine from your body. Learn to predict your moods. Do not let a bad situation be your excuse to have a cigarette. Some situations in your life might tempt you into wanting a cigarette. Never have "just one" cigarette. It leads to wanting another and another. Remind yourself of your decision to quit. Change habits associated with smoking. If you smoked while driving or when feeling stressed, try other activities to replace smoking. Stand up when drinking your coffee. Osage your teeth after eating. Sit in a different chair when you read the paper. Avoid alcohol while trying to quit, and try to drink fewer caffeinated beverages. Alcohol and caffeine may urge you to smoke. Avoid foods and drinks that can trigger a desire to smoke, such as sugary or spicy foods and alcohol. Ask people who smoke not to smoke around you. Have something planned to do right after eating or having a cup of coffee. For example, plan to take a walk or exercise. Try a relaxation exercise to calm you down and decrease your stress. Remember, you may be tense and nervous for the first 2 weeks after you quit, but this will pass. Find new activities to keep your hands busy. Play with a pen, coin, or rubber band. Doodle or draw things on paper. Osage your teeth right after eating. This will help cut down on the craving for the taste of tobacco after meals. You can also try mouthwash. Use oral substitutes in place of cigarettes. Try using lemon drops, carrots , cinnamon sticks, or chewing gum. Keep them handy so they are available when you have the urge to smoke. When you have the urge to smoke, try deep breathing. Designate your home as a nonsmoking area. If you are a heavy smoker, ask your health care provider about a prescription for nicotine chewing gum. It can ease your withdrawal from nicotine. Reward yourself. Set aside the cigarette money you save and buy yourself something nice. Look for support from others. Join a support group or smoking cessation program. Ask someone at home or at work to help you with your plan to quit smoking. Always ask yourself, "Do I need this cigarette or is this just a reflex?" Tell yourself, "Today, I choose not to smoke," or "I do not want to smoke." You are reminding yourself of your decision to quit. Do not replace cigarette smoking with electronic cigarettes (commonly called e-cigarettes). The safety of e-cigarettes is unknown, and some may contain harmful chemicals. If you relapse, do not give up! Plan ahead and think about what you will do the next time you get the urge to smoke. HOW WILL I FEEL WHEN I QUIT SMOKING? You may have symptoms of withdrawal because your body is used to nicotine (the addictive substance in cigarettes). You may crave cigarettes, be irritable, feel very hungry, cough often, get headaches, or have difficulty concentrating. The withdrawal symptoms are only temporary. They are strongest when you first quit but will go away within 1014 days. When withdrawal symptoms occur, stay in control. Think about your reasons for quitting. Remind yourself that these are signs that your body is healing and getting used to being without cigarettes. Remember that withdrawal symptoms are easier to treat than the major diseases that smoking can cause. Even after the withdrawal is over, expect periodic urges to smoke. However, these cravings are generally short lived and will go away whether you smoke or not. Do not smoke! WHAT RESOURCES ARE AVAILABLE TO HELP ME QUIT SMOKING? Your health care provider can direct you to community resources or hospitals for support, which may include: Group support. Education. Hypnosis. Therapy. Document Released: 06/19/2005 Document Revised: 02/05/2015 Document Reviewed: ExitCare Patient Information 2015 [employer]. This information is not intended to replace advice given to you by your health care provider. Make sure you discuss any questions you have with your health care provider. Follow Up With: Where: When: Onel Burris [address] [place] [address] Drive; [facility] [place] [address] Business (1) Within 2 to 4 weeks, only if needed Comments: Extracted from: Title: Office Visit Note Author: Onel Burris MD Date: 07/25/15 Assessment/Plan Nicotine addiction She was provided a Chantix starter pack. She was advised to call back in about 2 weeks to report how she is doing with medication. The product information was reviewed with her in detail today.
--- OUTSIDE RECORDS SUMMARY | 2017-01-13 12:01 | XMS REPORT | Continuity of Care Document ---
Author Author [facility] Organization [facility] Address Unknown Phone Unavailable Support Name Relationship Address Phone TRISTAN PANG FACS, MD Caregiver [address] [place] [address] [place], [place] [phone] NIKKI DELGADO MD Caregiver [address] [place] [address] [place] [address] [phone] [place] Next Of Kin [address] [place] [address] Insurance Providers Payer Name Policy Number Subscriber Name Relationship Medicareadvantra Ppo [id number] RolandAvis 18 Self Advance Directives Directive Response Recorded Date/Time Dr Hartman Resuscitation Status Full Code 01/03/15 10:13am Resuscitation Documents on File No 01/03/15 9:40am Problems No known problems or medical conditions. Medications Medication Dose Route Sig Days/Qty Instructions Order Date Discontinued Date Status Flecainide Acetate 50 Mg PO TWICE A DAY 01/03/15 Active Omeprazole 20 Mg PO DAILY 01/03/15 Active Acetaminophen 2 Tab PO DAILY 01/03/15 Active Aspirin 1 Tab PO DAILY 01/03/15 Active Calcium Carbonate/Vitamin D3 1 Tab PO THREE TIMES A DAY 01/03/15 Active Ergocalciferol (Vitamin D2) 1 Cap PO weekly 01/03/15 Active Loratadine 1 Tab PO DAILY 01/03/15 Active Potassium Iodide 65 Mg PO DAILY 01/03/15 Active Vitamin E Acetate 400 Unit PO DAILY 01/03/15 Active Social History Social History Problem Response Recorded Date/Time Chewing Tobacco Status No 01/03/2015 9:30am Hx Substance Use No 01/03/2015 9:30am Hx Alcohol Use Y BEER ON OCCASION 01/03/2015 9:30am Has the pt used tobacco in the last 12 months Yes 01/04/2015 7:10am Query Response Start Date Stop Date Smoking Status Current every day smoker Hospital Discharge Instructions No hospital discharge instructions. Plan of Care No plan of care. Functional Status No functional status results. Allergies, Adverse Reactions, Alerts Allergen Type Severity Reaction Status Last Updated Penicillin Allergy Unknown UNKNOWN Active 01/03/15 Immunizations Name Given Type Hx Influenza Vaccination No Historical Hx Pneumococcal Vaccination No Historical Hx Influenza Vaccination No Historical Vital Signs Acute Vital Signs Vital Response Date/Time Temperature (Fahrenheit) 96.8 deg F (96.8 - 99.1) Temperature (Calculated Celsius) 36.99203 degrees C (36.0 - 37.3) Temperature Source Temporal Pulse Rate (adult) 80 bpm (60 - 100) Respiratory Rate 16 breaths/min (10 - 20) O2 Sat by Pulse Oximetry 93 % (90 - 100) Oxygen Delivery Method Room Air Blood Pressure 129/67 mm Hg Blood Pressure Source Automatic Cuff Height 5 ft 2 in Weight 174 lb Body Mass Index 31.0 kg/m^2 Results Test Source Date Result Interp. Ref. Range Comments Lab Scanned Report November 20, 2014 8:33pm LAB TEST FORM REQUEST - Thyroid Stimulating Hormone (TSH) November 20, 2014 5:03pm 2.62 MIU/L N 0.47-4.68 Troponin I November 20, 2014 5:03pm < 0.012 ng/ml 0-0.12 Turbidity November 20, 2014 5:03pm 24 H 0-20 0-21: Turbidity not present.22-999: Turbidity present - Gross turbidity can falsely decrease Lipase and Triglycerides. Chemistry Specimen Hemolysis November 20, 2014 5:03pm 44 H 0-25 0-25: No Hemolysis.26-70: Slight Hemolysis - can falsely elevate K and Urine Protein. 71-285: Moderate Hemolysis - can falsely elevate K, Troponin I, CA 19-9, PTH, CSF GLucose, and Urine Protein, and can falsely decrease Phenytoin. 286-999: Gross Hemolysis - can falsely elevate K, Troponin I, CA 19-9, PTH, CSF Glucose, and Urine Protine, and can falsely decrease Phenytoin. Recommend specimen recollection. Icterus Index November 20, 2014 5:03pm < 2 0-7 Lipase November 20, 2014 5:03pm 109 U/L N 23-300 Amylase Level November 20, 2014 5:03pm 71 U/L N 30-110 Alanine Aminotransferase (ALT/SGPT) November 20, 2014 5:03pm 34 U/L N 9- 52 Aspartate Amino Transf (AST/SGOT) November 20, 2014 5:03pm 31 U/L N 14- 36 Albumin/Globulin Ratio November 20, 2014 5:03pm 1.3 RATIO N 1.1-2.2 Globulin November 20, 2014 5:03pm 3.4 G/DL N 2.4-3.6 Albumin November 20, 2014 5:03pm 4.4 G/DL N 3.5-5.0 Total Protein November 20, 2014 5:03pm 7.8 G/DL N 6.3-8.2 Alkaline Phosphatase November 20, 2014 5:03pm 105 U/L N 38-126 Total Bilirubin November 20, 2014 5:03pm 0.50 MG/DL N 0.20-1.30 Calcium Level November 20, 2014 5:03pm 9.7 MG/DL N 8.4-10.2 Calculated Osmolality November 20, 2014 5:03pm 281 MOSM/KG H 261-280 Glucose Level November 20, 2014 5:03pm 87 MG/DL N 65-110 Glomerular Filtration Rate Calc November 20, 2014 5:03pm 71 - BUN/Creatinine Ratio November 20, 2014 5:03pm 26 RATIO N 6-26 Creatinine November 20, 2014 5:03pm 0.8 MG/DL N 0.7-1.2 Blood Urea Nitrogen November 20, 2014 5:03pm 21.0 MG/DL H 7-17 Anion Gap November 20, 2014 5:03pm 14 MEQ/L N 5-15 Carbon Dioxide Level November 20, 2014 5:03pm 22 MEQ/L N 22-30 Chloride Level November 20, 2014 5:03pm 109 MEQ/L H 98-107 Potassium Level November 20, 2014 5:03pm 4.3 MEQ/L N 3.6-5 Sodium Level November 20, 2014 5:03pm 145 MEQ/L H 134-144 Prothromb Time International Ratio November 20, 2014 5:03pm 0.95 N 0.81- 1.09 THERAPUTIC RANGE=2.00-3.00 FOR ANTI-THROMBOSIS THERAPUTIC RANGE=2.50- 3.50 FOR IMPLANTED VALVE Procedures Procedure Status Date Provider(s) COMPREHEN METABOLIC PANEL completed 11/20/14 ASSAY OF AMYLASE completed 11/20/14 ASSAY OF LIPASE completed 11/20/14 ASSAY THYROID STIM HORMONE completed 11/20/14 ASSAY OF TROPONIN QUANT completed 11/20/14 PROTHROMBIN TIME completed 11/20/14 Esophagogastroduodenoscopy (EGD) with closed biopsy completed 01/04/15 TRISTAN PANG MD, FACS, CWS Colonoscopy completed 01/04/15 TRISTAN PANG MD, FACS, CWS Encounters Encounter Location Date/Time Registered Clinic [facility] 11/20/14 5:23pm
--- OUTSIDE RECORDS SUMMARY | 2017-01-13 12:01 | XMS REPORT | Referral Summary ---
Author Author [facility] Organization [facility] Address Unknown Phone Unavailable Care Team Providers Care Clipper Counters Name Role Phone Rosalina Day Primary Care Physician [phone] Encounter VC Date(s): 11/10/16 - 11/10/16 [facility] [address] [place] [id number] Discharge Diagnosis: COPD exacerbation Discharge Diagnosis: Right lower lobe pneumonia Discharge Disposition: 01-Home or Self Care Attending Physician: Cora Day DO Admitting Physician: Cora Day DO Vital Signs Most recent to 1 oldest [Reference Range]: Temperature Tympanic 36.5 degC [36.6-38.1 degC] *LOW* (11/10/16 2:32 PM) Peripheral Pulse 84 bpm Rate [60-100 bpm] (11/10/16 2:32 PM) Blood Pressure 150/70 mmHg [90-140/60-90 mmHg] *HI* (11/10/16 2:32 PM) SpO2 95 % (11/10/16 2:32 PM) Problem List Condition Effective Dates Status [...] DAILY, # 90 caps, 1 Refill(s), eRx: [facility], TAKE ONE CAPSULE BY MOUTH ONCE DAILY Start Date: 11/03/16 Status: Ordered DuoNeb 0.5 mg-2.5 mg/3 mL inhalation solution 3 mL, NEB, q6hr, as needed for shortness of breath or wheezing, # 180 mL, 2 Refill(s), Pharmacy: [facility] Start Date: 11/10/16 Status: Ordered flecainide 150 mg oral tablet 150 mg 1 tabs, Oral, q12hr, FILLS THROUGH [facility] [id number] GETS 90 TABS PER FILL FOR $35, # 90 tabs, 6 Refill(s), Pharmacy: [facility], 1 tabs Oral q12hr,Instr:FILLS THROUGH [facility] [id number]; GETS 90 TABS PER FILL FOR $35 Start Date: 12/26/15 Status: Ordered Levaquin 750 mg oral tablet 750 mg 1 tabs, Oral, q24hr, X 10 days, # 10 tabs, 0 Refill(s), Pharmacy: [facility], 1 tabs Oral q24hr,x10 days Start Date: 11/10/16 Stop Date: 11/20/16 Status: Ordered Mucinex DM 30 mg-600 mg oral tablet, extended release tabs, Oral, q12hr, 0 Refill(s) Start Date: 11/10/16 Status: Ordered Olden 5 mg-325 mg oral tablet 1-2 tabs, [...] # 30 tabs , 8 Refill(s), [facility] Start Date: 10/23/16 Status: Ordered Results No [...] meniscus tear 5Ablation of accessory pathway for Egtjq-Zzbgjhvkd-Zgcfl syndrome 6Left breast 7Bilateral Social History Social History Type Response Smoking Status Current every day smoker; Type: Cigarettes; Tobacco use per day: Pack Assessment and Plan Extracted from: Title: ACUTE copd Author: Cora Day DO Date: 11/10/16 Assessment/Plan COPD exacerbation Ordered: Office Visit Level 4 Est 26716 Cough Right lower lobe pneumonia Ordered: Office Visit Level 4 Est 70198 After nebulizer treatment patient's lung exam improvedand she was found to haverhonchi and decreased air movement concentrated in the right lower lobe. At this time we will provide the patient with a nebulizer machine and some DuoNeb treatments to take every 4-6 hourswhile awake. She was prescribed Medrol Dosepak and Levaquin. Patient is to return to clinic if not improving or present to the emergency department with any significant respiratory distress.
--- OUTSIDE RECORDS SUMMARY | 2017-01-13 12:01 | XMS REPORT | Referral Summary ---
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 Name Role Phone Fatuma Rupesh Primary Care Physician [phone] Encounter [facility] [id number] Date(s): 11/23/14 - 11/23/14 [facility], Cardiology [address] [place], [place] [address] Discharge Diagnosis: A-fib Discharge Disposition: Home or Self Care Attending Physician: Zoraida Ortiz MD Admitting Physician: Zoraida Ortiz MD Vital Signs No data available for this section Problem List Condition Effective Dates Status Health Status Informant Polycythemia(Confirm Active ed) History of TIA Active (transient ischemic attack)(Confirmed) Obesity(Confirmed) Active patient Paroxysmal Active a-fib(Confirmed) Tobacco Active patient user(Confirmed) Allergies, Adverse Reactions, Alerts Substance Reaction Severity Status penicillin Active Medications Arthritis Pain 650 mg, Oral, Daily, TAKE 2 TABLETS PER DAY, 0 Refill(s) Special Instructions: TAKE 2 TABLETS PER DAY Start Date: 11/20/14 Status: Ordered Calcium 600+D tabs, Oral, TID, 0 Refill(s) Start Date: 11/23/14 Status: Ordered flecainide 50 mg oral tablet 1 tabs, Oral, q12hr, # 60 tabs, 6 Refill(s), Pharmacy: [facility], 1 tabs Oral q12hr Start Date: 11/23/14 Status: Ordered ohm Allergy Relief 10 mg oral tablet 1 tabs, Oral, Daily, # 15 tabs, 0 Refill(s) Start Date: 11/23/14 Status: Ordered omeprazole 20 mg oral delayed release capsule 1 caps, Oral, Daily, # 30 caps, 0 Refill(s), Pharmacy: [facility], 1 caps Oral Daily,x30 days Start Date: 11/20/14 Stop Date: 12/20/14 Status: Ordered potassium iodide 65 mg, Oral, Daily, 0 Refill(s) Start Date: 11/20/14 Status: Ordered vitamin E 400 Intl_Units, Oral, Daily, 0 Refill(s) Start Date: 11/20/14 Status: Ordered Xarelto 20 mg oral tablet 1 tabs, Oral, qPM, # 30 tabs, 0 Refill(s), Pharmacy: [facility], 1 tabs Oral qPM Start Date: 11/23/14 Status: Ordered Results No data available for [...]
--- OUTSIDE RECORDS SUMMARY | 2017-01-13 12:01 | XMS REPORT | Referral Summary ---
Author Author [facility] Organization [facility] Address Unknown Phone Unavailable Care Team Providers Care Body Component Engineer Name Role Phone Rupesh Burris Primary Care Physician [phone] Encounter [facility] Date(s): 08/24/15 - 08/24/15 [facility] [address] [place] [address] [place] [id number] Discharge Diagnosis: Chest pain Discharge Diagnosis: Nicotine addiction Discharge Disposition: 01-Home or Self Care Attending Physician: Onel Burris MD Admitting Physician: Onel Burris MD Vital Signs Most recent to 1 oldest [Reference Range]: Temperature Tympanic 37.0 degC [36.6-38.1 degC] (08/24/15 4:02 PM) Peripheral Pulse 78 bpm Rate [60-100 bpm] (08/24/15 4:02 PM) Blood Pressure 112/60 mmHg [90-140/60-90 mmHg] (08/24/15 4:02 PM) SpO2 94 % (08/24/15 4:02 PM) Problem List Condition Effective Dates Status [...] 0 Refill(s) Start Date: 05/24/15 Status: Ordered Calcium 600+D 2 tabs, Oral, TID, 0 Refill(s) Start Date: 11/23/14 Status: Ordered diltiazem 180 mg/24 hours oral capsule, extended release 180 mg 1 caps, Oral, Daily, # 30 caps, 6 Refill(s), Pharmacy: [facility], 1 caps Oral Daily Start Date: 02/16/15 Status: Ordered flecainide 100 mg oral tablet 150 mg 1.5 tabs, Oral, q12hr, # 150 tabs, 5 Refill(s), Pharmacy: [facility], 1.5 tabs Oral q12hr Start Date: 02/23/15 Status: Ordered [place] 5 mg-325 mg oral tablet 1 tabs, Oral, q6hr, as needed for pain, X 7 days, # 28 tabs, 0 Refill(s) Start Date: 08/24/15 Stop Date: 08/31/15 Status: Ordered ohm Allergy Relief 10 mg oral tablet 1 tabs, Oral, Daily, # 15 tabs, 0 Refill(s) Start Date: 11/23/14 Status: Ordered omeprazole 20 mg oral delayed release capsule See Instructions, TAKE ONE CAPSULE BY MOUTH ONCE DAILY, # 60 caps, eRx: [facility], TAKE ONE CAPSULE BY MOUTH [...] qPM, # 30 tabs, 6 Refill(s), Pharmacy: [facility], 1 tabs Oral qPM Start Date: 01/05/15 Status: Ordered Results No data available for this section Immunizations No data available for this section Procedures Procedure Date Related Diagnosis Body Site Colonoscopy normal1 01/04/15 Esophagogastroduodenoscopy and biopsy2 01/04/15 TIA3 2001 Arthroscopy4 1999 Ablation5 1992 Breast lumpectomy6 Cataract extraction and insertion of intraocular lens7 Tonsillectomy 1Diverticulosis. Repeat in 10 years 2No Jaimes's, CLOtest a negative, benign gastric polyp. 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 It may take up to 6 weeks to get better. It may take longer if you must stay physically active in your work and activities. CAUSES Chest wall pain may happen on its own. However, it may be caused by: A viral illness like the flu. Injury. Coughing. Exercise. Arthritis. Fibromyalgia. Shingles. HOME CARE INSTRUCTIONS Avoid overtiring physical activity. Try not to strain or perform activities that cause pain. This includes any activities using your chest or your abdominal and side muscles, especially if heavy weights are used. Put ice on the sore area. Put ice in a plastic bag. Place a towel between your skin and the bag. Leave the ice on for 15-20 minutes per hour while awake for the first 2 days. Only take gjvg-yre-meceyaf or prescription medicines for pain, discomfort, or fever as directed by your caregiver. SEEK IMMEDIATE MEDICAL CARE IF: Your pain increases, or you are very uncomfortable. You have a fever. Your chest pain becomes worse. You have new, unexplained symptoms. You have nausea or vomiting. You feel sweaty or lightheaded. You have a cough with phlegm (sputum), or you cough up blood. MAKE SURE YOU: Understand these instructions. Will watch your condition. Will get help right away if you are not doing well or get worse. Document Released: 09/21/2006 Document Revised: 12/13/2012 Document Reviewed: [facility] Patient Information 2015 [employer] [facility]. This information is not intended to replace advice given to you by your health care provider. Make sure you discuss any questions you have with your health care provider. Follow Up With: Where: When: Onel Burris [address]; [facility] [place] [address] [place] (1) Within 3 to 5 days, only if needed Comments: Extracted from: Title: Office Visit Note Author: Onel Burris MD Date: 08/24/15 Assessment/Plan Chest pain EKG does not show acute changes. Troponin I level is normal. Chest x-ray does not showacute changes. She seems to have more of a chest wall pain. She will be placed on [place] 5 mg every 6 hours when necessary pain. 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 Orders: HYDROcodone-acetaminophen, 1 tabs, Oral, q6hr, as needed for pain, X 7 days, # 28 tabs, 0 Refill(s)
--- OUTSIDE RECORDS SUMMARY | 2017-01-13 12:02 | XMS REPORT | Referral Summary ---
Author Author [facility] Organization [facility] Address Unknown Phone Unavailable Care Team Providers Care Green Hide Inspector Name Role Phone Rupesh Burris Primary Care Physician [phone] Encounter Date(s): 02/16/15 - 02/16/15 [facility] [address] [place], [place] [address] Discharge Diagnosis: AF (paroxysmal atrial fibrillation) Discharge [...] Daily, # 30 caps, 6 Refill(s), Pharmacy: [facility], 1 caps Oral Daily Start Date: 02/16/15 Status: Ordered flecainide 100 mg oral tablet 150 mg 1.5 tabs, Oral, q12hr, # 150 tabs, 5 Refill(s), Pharmacy: [facility], 1.5 tabs Oral q12hr Start Date: 02/23/15 Status: Ordered [place] 5 mg-325 mg oral tablet 1 tabs, [...] MOUTH ONCE DAILY, # 60 caps, eRx: [facility], TAKE ONE CAPSULE BY MOUTH [...] qPM, # 30 tabs, 6 Refill(s), Pharmacy: [facility], 1 tabs Oral qPM [...] meniscus tear 5Ablation of accessory pathway for Hznvm-Jhoglxdyj-Xkhnl syndrome 6Left breast 7Bilateral Social History Social History Type Response Smoking Status Current every day smoker; Type: Cigarettes; Tobacco use per day: Pack Assessment and Plan Extracted from: Title: Ambulatory Patient Education Author: Rosio Thibodeaux APRN Date: Family Medicine Atrial Fibrillation Atrial fibrillation [...] Released: 06/30/2009 Document Revised: 01/16/2014 Document Reviewed: ExitCare Patient Information 2014 [facility], [facility]. No follow up information was provided. Extracted from: Title: Office Visit Note Author: Rosio Thibodeaux APRN Date: 02/16/15 Assessment/Plan AF (paroxysmal atrial fibrillation) Referrals to Other Providers Referred by: Rosio Thibodeaux APRN
--- OUTSIDE RECORDS SUMMARY | 2017-01-13 12:02 | XMS REPORT | Referral Summary ---
Author Author [facility] Organization [facility] Address Unknown Phone Unavailable Care Team Providers Care Seasoning Mixer Name Role Phone Rupesh Burris Primary Care Physician [phone] Encounter Date(s): 02/16/15 - 02/16/15 [facility] [address] [place], [place] [address] Discharge Diagnosis: AF (paroxysmal atrial fibrillation) [...] Daily, # 30 caps, 6 Refill(s), Pharmacy: [facility], 1 caps Oral Daily Start Date: 02/16/15 Status: Ordered flecainide 100 mg oral tablet 150 mg 1.5 tabs, Oral, q12hr, # 150 tabs, 5 Refill(s), Pharmacy: [facility], 1.5 tabs Oral q12hr Start Date: 02/23/15 Status: Ordered ohm Allergy Relief 10 mg oral tablet 1 tabs, Oral, Daily, # 15 tabs, 0 Refill(s) Start Date: 11/23/14 Status: Ordered omeprazole 20 mg oral delayed release capsule See Instructions, TAKE ONE CAPSULE BY MOUTH ONCE DAILY, # 60 caps, eRx: [facility], TAKE ONE CAPSULE BY [...] qPM, # 30 tabs, 6 Refill(s), Pharmacy: 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 No follow up information was provided. Extracted from: Title: Office Visit Note Author: Rosio Thibodeaux APRN Date: 02/16/15 Assessment/Plan AF (paroxysmal atrial fibrillation) Referrals to Other Providers Referred by: Rosio Thibodeaux APRN
--- OUTSIDE RECORDS SUMMARY | 2017-01-13 12:02 | XMS REPORT | Referral Summary ---
Author Organization Unknown Address Unknown Phone Unavailable Care Team Providers Care Aircraft Restorer Name Role Phone Rupesh Burris Primary Care Physician [phone] Encounter [facility] Date(s): 12/13/14 - 12/13/14 [facility], Internal Medicine [address] [place] [address] [place] [id number] [[email or web address] Discharge Disposition: Home or Self Care Attending Physician: Onel Burris MD Admitting Physician: Onel Burris MD Referring Physician: Onel Burris MD Vital [...] PER DAY Start Date: 11/20/14 Status: Ordered aspirin 81 mg, 0 Refill(s) Start Date: 12/13/14 Status: Ordered Calcium 600+D tabs, Oral, TID, 0 Refill(s) Start Date: 11/23/14 Status: Ordered Drisdol 50,000 intl units (1.25 mg) oral capsule 1 caps, Oral, q4wk, # 8 Each, 0 Refill(s), Pharmacy: [email or web address], 1 caps Oral q4wk Start Date: 12/04/14 Status: Ordered flecainide 50 mg oral tablet 1 tabs, Oral, q12hr, # 60 tabs, 6 Refill(s), Pharmacy: [facility], 1 tabs Oral q12hr Start Date: 11/23/14 Status: Ordered ohm Allergy Relief 10 mg oral tablet 1 tabs, Oral, Daily, # 15 tabs, 0 Refill(s) Start Date: 11/23/14 Status: Ordered omeprazole 20 mg oral delayed release capsule 1 caps, Oral, Daily, # 30 caps, 0 Refill(s), Pharmacy: [facility], 1 caps Oral Daily,x30 days Start Date: 11/20/14 Stop Date: 12/20/14 Status: Ordered potassium iodide 65 mg, Oral, Daily, 0 Refill(s) Start Date: 11/20/14 Status: Ordered vitamin E 400 Intl_Units, Oral, Daily, 0 Refill(s) Start Date: 11/20/14 Status: Ordered Results No data available for [...]
--- OUTSIDE RECORDS SUMMARY | 2017-01-13 12:02 | XMS REPORT | Referral Summary ---
Author Organization Unknown Address Unknown Phone Unavailable Care Team Providers Care Furnace Liner Name Role Phone Rupesh Burris Primary Care Physician [phone] Encounter [facility] [id number] Date(s): 12/13/14 - 12/13/14 [facility] [place], [address] [place], [place] [address] Discharge Diagnosis: History of peptic ulcer Discharge Diagnosis: Belching Discharge Diagnosis: Epigastric pain Discharge Disposition: Home or Self Care Attending Physician: Gopi Blanchard MD Admitting Physician: Gopi Blanchard MD Referring Physician: Gopi Blanchard MD Vital Signs Most recent to 1 oldest [Reference Range]: Temperature Tympanic 36.3 degC [36.6-38.1 degC] *LOW* (12/13/14 1:07 PM) Blood Pressure 122/70 mmHg [90-140/60-90 mmHg] (12/13/14 1:07 PM) Problem List Condition Effective Dates Status [...] q4wk, # 8 Each, 0 Refill(s), Pharmacy: [facility], 1 caps Oral q4wk Start Date: 12/04/14 Status: Ordered flecainide 50 mg oral tablet 1 tabs, Oral, q12hr, # 60 tabs, 6 Refill(s), Pharmacy: [facility], 1 tabs Oral q12hr Start Date: 11/23/14 Status: Ordered ohm Allergy Relief 10 mg oral tablet 1 tabs, Oral, Daily, # 15 tabs, 0 Refill(s) Start Date: 11/23/14 Status: Ordered omeprazole 20 mg oral delayed release capsule 1 caps, Oral, Daily, # 30 caps, 0 Refill(s), Pharmacy: [facility], 1 caps Oral [...] per day: 1 Pack Assessment and Plan Extracted from: Title: Ambulatory Patient Education Author: Gopi Blanchard MD Date: 08/19 Family Medicine Peptic Ulcer A peptic ulcer is a sore in the lining of in your esophagus (esophageal ulcer ) , stomach (gastric ulcer ), or in the first part of your small intestine ( duodenal ulcer ). The ulcer causes erosion into the deeper tissue. CAUSES Normally, the lining of the stomach and the small intestine protects itself from the acid that digests food. The protective lining can be damaged by: An infection caused by a bacterium called Helicobacter pylori (H. pylori ) . Regular use of nonsteroidal anti-inflammatory drugs (NSAIDs), such as ibuprofen or aspirin. Smoking tobacco. Other risk factors include being older than 50, drinking alcohol excessively, and having a family history of ulcer disease. SYMPTOMS Burning pain or gnawing in the area between the chest and the belly button. Heartburn. Nausea and vomiting. Bloating. The pain can be worse on an empty stomach and at night. If the ulcer results in bleeding, it can cause: Black, tarry stools. Vomiting of bright red blood. Vomiting of coffee ground looking materials. DIAGNOSIS A diagnosis is usually made based upon your history and an exam. Other tests and procedures may be performed to find the cause of the ulcer. Finding a cause will help determine the best treatment. Tests and procedures may include: Blood tests, stool tests, or breath tests to check for the bacterium H. pylori . An upper gastrointestinal (GI) series of the esophagus, stomach, and small intestine. An endoscopy to examine the esophagus, stomach, and small intestine. A biopsy. TREATMENT Treatment may include: Eliminating the cause of the ulcer, such as smoking, NSAIDs, or alcohol. Medicines to reduce the amount of acid in your digestive tract. Antibiotic medicines if the ulcer is caused by the H. pylori bacterium. An upper endoscopy to treat a bleeding ulcer. Surgery if the bleeding is severe or if the ulcer created a hole somewhere in the digestive system. HOME CARE INSTRUCTIONS Avoid tobacco, alcohol, and caffeine. Smoking can increase the acid in the stomach, and continued smoking will impair the healing of ulcers. Avoid foods and drinks that seem to cause discomfort or aggravate your ulcer. Only take medicines as directed by your caregiver. Do not substitute over- the-counter medicines for prescription medicines without talking to your caregiver. Keep any follow-up appointments and tests as directed. SEEK MEDICAL CARE IF: Your do not improve within 7 days of starting treatment. You have ongoing indigestion or heartburn. SEEK IMMEDIATE MEDICAL CARE IF: You have sudden, sharp, or persistent abdominal pain. You have bloody or dark black, tarry stools. You vomit blood or vomit that looks like coffee grounds. You become light headed, weak, or feel faint. You become sweaty or clammy. MAKE SURE YOU: Understand these instructions. Will watch your condition. Will get help right away if you are not doing well or get worse. Document Released: 09/18/2001 Document Revised: 06/15/2013 Document Reviewed: [facility] Patient Information 2014 [employer] [facility]. No follow up information was provided.
--- OUTSIDE RECORDS SUMMARY | 2017-01-13 12:02 | XMS REPORT | Referral Summary ---
Author Author [facility] Organization [facility] Address Unknown Phone Unavailable Care Team Providers Care Voltage Tester Name Role Phone Rupesh Burris Primary Care Physician [phone] Encounter [facility] Date(s): 07/25/15 - 07/25/15 [facility] [address] [place] [address] [place] [id number] Discharge Diagnosis: Nicotine addiction Discharge Disposition: 01-Home [...] Daily, # 30 caps, 6 Refill(s), Pharmacy: [facility], 1 caps Oral Daily Start Date: 02/16/15 Status: Ordered flecainide 100 mg oral tablet 150 mg 1.5 tabs, Oral, q12hr, # 150 tabs, 5 Refill(s), Pharmacy: [facility], 1.5 tabs Oral q12hr Start Date: 02/23/15 Status: Ordered ohm Allergy Relief 10 mg oral tablet 1 tabs, Oral, Daily, # 15 tabs, 0 Refill(s) Start Date: 11/23/14 Status: Ordered omeprazole 20 mg oral delayed release capsule See Instructions, TAKE ONE CAPSULE BY MOUTH ONCE DAILY, # 60 caps, eRx: [facility], TAKE ONE CAPSULE BY MOUTH ONCE DAILY Start Date: 05/29/15 Status: Ordered potassium gluconate 595 mg oral [...] qPM, # 30 tabs, 6 Refill(s), Pharmacy: [facility], 1 tabs Oral qPM [...] meniscus tear 5Ablation of accessory pathway for Xpthz-Olcsokrpw-Aheta syndrome 6Left breast 7Bilateral Social History Social [...] and skin patches. Some may be available idey-dsu-chvdnns and others require a prescription. Antidepressant medicine [...] 02/05/2015 Document Reviewed: ExitCare Patient Information 2015 [facility] [facility]. This information is not intended to [...] smoking. Stand up when drinking your coffee. [place] your teeth after eating. Sit in a [...] band. Doodle or draw things on paper. [place] your teeth right after eating. This will [...] 02/05/2015 Document Reviewed: ExitCare Patient Information 2015 [employer], [facility]. This information is not intended to replace advice given to you by your health care provider. Make sure you discuss any questions you have with your health care provider. Follow Up With: Where: When: Onel Burris [address] [place] [address] Drive; [place] [address] Business (1) Within 2 to 4 [...]
--- OUTSIDE RECORDS SUMMARY | 2017-01-13 12:02 | XMS REPORT | Referral Summary ---
Author Author [facility] Organization [facility] Address Unknown Phone Unavailable Care Team Providers Care Manager Traffic Name Role Phone Barb Rosalina Primary Care Physician [phone] Encounter VC Date(s): 07/30/15 - 07/30/15 [facility] [address] [place] [address] G[place]RI[place] Barrett [id number] Discharge Diagnosis: Acute pain of right wrist Discharge Disposition: 01-Home or Self Care Attending Physician: Onel Burris MD Admitting Physician: Onel Burris MD Vital Signs Most recent to 1 oldest [Reference Range]: Temperature Tympanic 37 degC [36.6-38.1 degC] (07/30/15 2:48 PM) Respiratory Rate 22 br/min [14-20 br/min] *HI* (07/30/15 2:48 PM) Blood Pressure 115/60 mmHg [90-140/60-90 mmHg] (07/30/15 2:48 PM) SpO2 90 % (07/30/15 2:48 PM) Problem List Condition Effective Dates Status [...] Daily, # 90 caps, 3 Refill(s), Pharmacy: [id number], 1 caps Oral Daily Start Date: 09/25/15 Status: Ordered flecainide 150 mg oral tablet 150 mg 1 tabs, Oral, q12hr, FILLS THROUGH [employer] [id number] GETS 90 TABS PER FILL FOR $35, # 90 tabs, 6 Refill(s), Pharmacy: [facility], 1 tabs Oral q12hr,Instr:FILLS THR[employer] [id number]; GETS 90 TABS PER FILL FOR $35 Start Date: 12/26/15 Status: Ordered Zachary 5 mg-325 mg oral tablet 1-2 tabs, [...] qPM, # 30 tabs, 6 Refill(s), Pharmacy: [facility], 1 tabs Oral qPM Start Date: 01/05/15 Status: Ordered Zyban 150 mg/12 hours oral tablet, extended release 150 mg 1 tabs, Oral, BID, # 60 tabs, 2 Refill(s), Pharmacy: [facility], 1 tabs Oral BID [...] meniscus tear 5Ablation of accessory pathway for Ekadq-Kjabnuohp-Qfrgy syndrome 6Left breast 7Bilateral Social History Social History Type Response Smoking Status Current every day smoker; Type: Cigarettes; Tobacco use per day: Pack Assessment and Plan Extracted from: Title: Ambulatory Patient Education Author: Onel Burris MD Date: Family Medicine Wrist Pain Wrist injuries are frequent in adults and children. A sprain is an injury to the ligaments that hold your bones together. A strain is an injury to muscle or muscle cord-like structures (tendons) from stretching or pulling. Generally, when wrists are moderately tender to touch following a fall or injury, a break in the bone (fracture) may be present. Most wrist sprains or strains are better in 3 to 5 days, but complete healing may take several weeks. HOME CARE INSTRUCTIONS Put ice on the injured area. Put ice in a plastic bag. Place a towel between your skin and the bag. Leave the ice on for 15-20 minutes, 3-4 times a day, for the first 2 days, or as directed by your health care provider. Keep your arm raised above the level of your heart whenever possible to reduce swelling and pain. Rest the injured area for at least 48 hours or as directed by your health care provider. If a splint or elastic bandage has been applied, use it for as long as directed by your health care provider or until seen by a health care provider for a follow-up exam. Only take xuuq-pmo-urgkoky or prescription medicines for pain, discomfort, or fever as directed by your health care provider. Keep all follow-up appointments. You may need to follow up with a specialist or have follow-up X-rays. Improvement in pain level is not a guarantee that you did not fracture a bone in your wrist. The only way to determine whether or not you have a broken bone is by X-ray. SEEK IMMEDIATE MEDICAL CARE IF: Your fingers are swollen, very red, white, or cold and blue. Your fingers are numb or tingling. You have increasing pain. You have difficulty moving your fingers. MAKE SURE YOU: Understand these instructions. Will watch your condition. Will get help right away if you are not doing well or get worse. Document Released: 07/01/2006 Document Revised: 09/26/2014 Document Reviewed: ExitCare Patient Information 2015 [employer]. This information is not intended to replace advice given to you by your health care provider. Make sure you discuss any questions you have with your health care provider. Follow Up With: Where: When: Onel Burris [address] [place] [address] Drive; [place] [address] Business (1) Within 1 to 2 weeks, only if needed Comments: Extracted from: Title: Office Visit Note Author: Onel Burris MD Date: 07/30/15 Assessment/Plan Acute pain of right wrist This seems to be more of a sprain although she does not recall any specific trauma. She was advised to use a wrist splint and to take Zachary as needed for pain. She will return for recheck as needed. Orders: benzonatate, 100 mg 1 caps, Oral, TID, Cough/ Congestion, # 10 caps, 0 Refill(s), Pharmacy: [id number], 1 caps Oral TID,PRN:Cough/ Congestion HYDROcodone-acetaminophen, 1 tabs, Oral, q6hr, as needed for pain, X 5 days, # 20 tabs, 0 Refill(s)
--- OUTSIDE RECORDS SUMMARY | 2017-01-13 12:02 | XMS REPORT | Referral Summary ---
Author Author [facility] Organization [facility] Address Unknown Phone Unavailable Care Team Providers Care Stove Bottom Worker Name Role Phone Rosalina Day Primary Care Physician [phone] Encounter VC Date(s): 03/04/16 - 03/04/16 [facility], [address] [place] [address] Discharge Diagnosis: Tobacco user Discharge Diagnosis: Paroxysmal a-fib Discharge Disposition: 01-Home or Self Care Attending Physician: Cora Day DO Admitting Physician: Cora Day DO Vital Signs Most recent to 1 oldest [Reference Range]: Peripheral Pulse 57 bpm Rate [60-100 bpm] *LOW* (03/04/16 9:42 AM) Respiratory Rate 18 br/min [14-20 br/min] (03/04/16 9:42 AM) Blood Pressure 122/68 mmHg [90-140/60-90 mmHg] (03/04/16 9:42 AM) SpO2 92 % (03/04/16 9:42 AM) Problem List Condition Effective Dates Status [...] Daily, # 90 caps, 3 Refill(s), Pharmacy: [facility], 1 caps Oral Daily Start Date: 09/25/15 Status: Ordered flecainide 150 mg oral tablet 150 mg 1 tabs, Oral, q12hr, FILLS THROUGH [employer] [id number] GETS 90 TABS PER FILL FOR $35, # 90 tabs, 6 Refill(s), Pharmacy: [facility], 1 tabs Oral q12hr,Instr:FILLS THR[employer] [id number]; GETS 90 TABS PER FILL FOR $35 Start Date: 12/26/15 Status: Ordered Almena 5 mg-325 mg oral tablet 1-2 tabs, [...] qPM, # 30 tabs, 6 Refill(s), Pharmacy: [facility], 1 tabs Oral qPM Start Date: 01/05/15 Status: Ordered Zyban 150 mg/12 hours oral tablet, extended release 150 mg 1 tabs, Oral, BID, # 60 tabs, 2 Refill(s), Pharmacy: [facility], 1 tabs Oral BID [...] meniscus tear 5Ablation of accessory pathway for Vgwjv-Ycgxupikl-Fxkyt syndrome 6Left breast 7Bilateral Social History Social History Type Response Smoking Status Current every day smoker; Type: Cigarettes; Tobacco use per day: Pack Assessment and Plan Extracted from: Title: Office Visit Note Author: Cora Day DO Date: 03/04/16 Assessment/Plan Paroxysmal a-fib No palpitations at this time, continue current medications. Ordered: Office Visit Level 3 Est 95196 Tobacco user Continue the Zyban. We discussed other healthier habits that she could use for theoral motor. We discussed chewing gum or sucking on suckers. We also discussedusing celery sticks or carrotsto help with this. Patient should return to clinic in 3 months if she has not moved away at that time. Ordered: Office Visit Level 3 Est 23920
--- OUTSIDE RECORDS SUMMARY | 2017-01-13 12:02 | XMS REPORT | Referral Summary ---
Author Organization Unknown Address Unknown Phone Unavailable Care Team Providers Care Urgent Care Physician Assistant Name Role Phone Rupesh Burris Primary Care Physician [phone] Encounter [facility] [id number] Date(s): 11/23/14 - 11/23/14 [facility], Cardiology [address] [place], [place] [address] Discharge Diagnosis: History of TIA (transient ischemic attack) Discharge Diagnosis: Tobacco user Discharge Diagnosis: Polycythemia Discharge Diagnosis: Paroxysmal a-fib Discharge Disposition: Home or Self Care Attending Physician: Zoraida Ortiz MD Admitting Physician: Zoraida Ortiz MD Referring Physician: Onel Burris MD Vital Signs Most recent to 1 oldest [Reference Range]: Peripheral Pulse 76 bpm Rate [60-100 bpm] (11/23/14 9:37 AM) Blood Pressure 102/64 mmHg [90-140/60-90 mmHg] (11/23/14 9:37 AM) Problem List Condition Effective Dates Status [...] q12hr, # 60 tabs, 6 Refill(s), Pharmacy: [facility], 1 tabs Oral q12hr Start Date: 11/23/14 Status: Ordered ohm Allergy Relief 10 mg oral tablet 1 tabs, Oral, Daily, # 15 tabs, 0 Refill(s) Start Date: 11/23/14 Status: Ordered omeprazole 20 mg oral delayed release capsule 1 caps, Oral, Daily, # 30 caps, 0 Refill(s), Pharmacy: [facility], 1 caps Oral Daily,x30 days Start Date: 11/20/14 Stop Date: 12/20/14 Status: Ordered potassium iodide 65 mg, Oral, Daily, 0 Refill(s) Start Date: 11/20/14 Status: Ordered vitamin E 400 Intl_Units, Oral, Daily, 0 Refill(s) Start Date: 11/20/14 Status: Ordered Xarelto 20 mg oral tablet 1 tabs, Oral, qPM, # 30 tabs, 0 Refill(s), Pharmacy: [facility], 1 tabs Oral qPM Start [...] per day: 1 Pack Assessment and Plan Referrals to Other Providers Referred by: Zoraida Ortiz MD
--- OUTSIDE RECORDS SUMMARY | 2017-01-13 12:02 | XMS REPORT | Referral Summary ---
Author Author [facility] Organization [facility] Address Unknown Phone Unavailable Care Team Providers Care Pump Operator Name Role Phone Rosalina Day Primary Care Physician [phone] Encounter VC Date(s): 10/15/15 - 10/15/15 [facility], [address] [place] Barrett [address] Discharge Diagnosis: Paroxysmal a-fib Discharge Diagnosis: Tobacco user Discharge Diagnosis: History of TIA (transient ischemic attack) Discharge Disposition: 01-Home or Self Care Attending Physician: Cora Day DO Admitting Physician: Cora Day DO Vital Signs Most recent to 1 oldest [Reference Range]: Peripheral Pulse 73 bpm Rate [60-100 bpm] (10/15/15 8:54 AM) Respiratory Rate 18 br/min [14-20 br/min] (10/15/15 8:54 AM) Blood Pressure 128/72 mmHg [90-140/60-90 mmHg] (10/15/15 8:54 AM) SpO2 97 % (10/15/15 8:54 AM) Problem List Condition Effective Dates Status [...] Daily, # 90 caps, 3 Refill(s), Pharmacy: [facility], 1 caps Oral Daily Start Date: 09/25/15 Status: Ordered flecainide 100 mg oral tablet 150 mg 1.5 tabs, Oral, q12hr, # 150 tabs, 5 Refill(s), Pharmacy: [facility], 1.5 tabs Oral q12hr Start [...] qPM, # 30 tabs, 6 Refill(s), Pharmacy: [facility], 1 tabs Oral qPM Start Date: 01/05/15 Status: Ordered Zyban 150 mg/12 hours oral tablet, extended release See Instructions, 1 tabs Oral daily for 3 days then BID., # 57 tabs, 0 Refill(s) , Pharmacy: [facility], 1 tabs Oral daily for 3 days then BID. Start Date: 10/15/15 Status: Ordered Results No data available for [...] meniscus tear 5Ablation of accessory pathway for Umdrn-Dudrludct-Qlkji syndrome 6Left breast 7Bilateral Social History Social History Type Response Smoking Status Current every day smoker; Type: Cigarettes; Tobacco use per day: Pack Assessment and Plan Extracted from: Title: Office Visit Note Author: Cora Day DO Date: 10/15/15 Assessment/Plan History of TIA (transient ischemic attack) Discussed the importance of smoking cessation today. Ordered: Office Visit Level 4 Est 09198 Paroxysmal a-fib Continue as per Dr. Ortiz. Ordered: Office Visit Level 4 Est 00645 Tobacco user Discussed options for smoking cessation. Since patient failed Chantix we did discuss bupropion. We discussed the interaction with her arrhythmic medications. Discussed that with close monitoring in short- term follow-up this could be a safe option for her. Patient agreed. We will start the patient on bupropion. Appropriatebehavior modification for smoking cessationwas discussed. Patient was counseled for9 minutes. She will return to clinic in 1 month for close follow-up. Ordered: Office Visit Level 4 Est 21713 Smoking Cessation 3-10 min [id number] Orders: buPROPion, See Instructions, 1 tabs Oral daily for 3 days then BID., # 57 tabs, 0 Refill(s), Pharmacy: [facility], 1 tabs Oral daily for 3 days then BID.
--- OUTSIDE RECORDS SUMMARY | 2017-01-13 12:02 | XMS REPORT | Referral Summary ---
Author Author [facility] Organization [facility] Address Unknown Phone Unavailable Care Team Providers Care Research Professor Of Biostatistics Name Role Phone Rupesh Burris Primary Care Physician [phone] Encounter VC Date(s): 07/30/15 - 07/30/15 [facility] [address] [place] [address] [place] Barrett [id number] Discharge Diagnosis: Acute pain of right wrist [...] Daily, # 30 caps, 6 Refill(s), Pharmacy: [facility], 1 caps Oral Daily Start Date: 02/16/15 Status: Ordered flecainide 100 mg oral tablet 150 mg 1.5 tabs, Oral, q12hr, # 150 tabs, 5 Refill(s), Pharmacy: [facility], 1.5 tabs Oral q12hr Start Date: 02/23/15 Status: Ordered Emporium 5 mg-325 mg oral tablet 1 tabs, Oral, q6hr, as needed for pain, X 5 days, # 20 tabs, 0 Refill(s) Start Date: 07/30/15 Stop Date: 08/04/15 Status: Ordered ohm Allergy Relief 10 mg oral tablet 1 tabs, Oral, Daily, # 15 tabs, 0 Refill(s) Start Date: 11/23/14 Status: Ordered omeprazole 20 mg oral delayed release capsule See Instructions, TAKE ONE CAPSULE BY MOUTH ONCE DAILY, # 60 caps, eRx: [facility], TAKE ONE CAPSULE BY MOUTH ONCE DAILY Start Date: 07/27/15 Status: Ordered potassium gluconate 595 mg oral tablet 1 TABLET, Oral, BID, 0 Refill(s) Start Date: 01/05/15 Status: Ordered Tessalon Perles 100 mg oral capsule 100 mg 1 caps, Oral, TID, Cough/ Congestion, # 10 caps, 0 Refill(s), Pharmacy: [facility], 1 caps Oral TID,PRN:Cough/ Congestion Start Date: 07/30/15 Stop Date: 08/06/15 Status: Ordered Vitamin C 250 mg, Oral, [...] qPM, # 30 tabs, 6 Refill(s), Pharmacy: [facility], 1 tabs Oral qPM [...] meniscus tear 5Ablation of accessory pathway for Mioto-Qlencvzrt-Vdorc syndrome 6Left breast 7Bilateral Social History Social [...] provider for a follow-up exam. Only take gmsr-php-[id number] or prescription medicines for pain, discomfort, or [...] Released: 07/01/2006 Document Revised: 09/26/2014 Document Reviewed: [facility] [place] Patient Information 2015 [employer]. This information is not intended to replace advice given to you by your health care provider. Make sure you discuss any questions you have with your health care provider. Follow Up With: Where: When: Onel Burris [address] [place] [address] Drive; [place] [address] Business (1) Within 1 to 2 weeks, only if needed Comments: Extracted from: Title: Office Visit Note Author: Onel Burris MD Date: 07/30/15 Assessment/Plan Acute pain of right wrist This seems to be more of a sprain although she does not recall any specific trauma. She was advised to use a wrist splint and to take Emporium as needed for pain. She will return for recheck as needed. Orders: benzonatate, 100 mg 1 caps, Oral, TID, Cough/ Congestion, # 10 caps, 0 Refill(s), Pharmacy: [facility], 1 caps Oral TID,PRN:Cough/ Congestion HYDROcodone-acetaminophen, 1 tabs, Oral, q6hr, as needed for pain, X 5 days, # 20 tabs, 0 Refill(s)
--- OUTSIDE RECORDS SUMMARY | 2017-01-13 12:02 | XMS REPORT | Referral Summary ---
Author Author [facility] Organization [facility] Address Unknown Phone Unavailable Care Team Providers Care Dredge Boat Engineer Name Role Phone Rupesh Burris Primary Care Physician [phone] Encounter VC Date(s): 08/08/15 - 08/08/15 [facility] [address] [place] [address] G[place]RIELE Barrett [address] Discharge Diagnosis: Nicotine addiction Discharge Diagnosis: Chronic low back pain Discharge Disposition: 01-Home or Self Care Attending Physician: Onel Burris MD Admitting Physician: Onel Burris MD Vital Signs Most recent to 1 oldest [Reference Range]: Temperature Oral 36.5 degC [35.8-37.3 degC] (08/08/15 8:58 AM) Respiratory Rate 18 br/min [14-20 br/min] (08/08/15 8:58 AM) Blood Pressure 122/68 mmHg [90-140/60-90 mmHg] (08/08/15 8:58 AM) SpO2 94 % (08/08/15 8:58 AM) Problem List Condition Effective Dates Status [...] Daily, # 30 caps, 6 Refill(s), Pharmacy: [facility], 1 caps Oral Daily Start Date: 02/16/15 Status: Ordered flecainide 100 mg oral tablet 150 mg 1.5 tabs, Oral, q12hr, # 150 tabs, 5 Refill(s), Pharmacy: [facility], 1.5 tabs Oral q12hr Start Date: 02/23/15 Status: Ordered ohm Allergy Relief 10 mg oral tablet 1 tabs, Oral, Daily, # 15 tabs, 0 Refill(s) Start Date: 11/23/14 Status: Ordered omeprazole 20 mg oral delayed release capsule See Instructions, TAKE ONE CAPSULE BY MOUTH ONCE DAILY, # 60 caps, eRx: [facility], TAKE ONE CAPSULE [...] 30 tabs, 6 Refill(s), Pharmacy: [facility], 1 tabs Oral qPM [...] meniscus tear 5Ablation of accessory pathway for Mgydf-Sshsgncuk-Dugbf syndrome 6Left breast 7Bilateral Social History Social History Type Response Smoking Status Current every day smoker; Type: Cigarettes; Tobacco use per day: Pack Assessment and Plan Extracted from: Title: Ambulatory Patient Education Author: Onel Burris MD Date: 08/08/15 Family Medicine Smoking Cessation, Tips for Success If you [...] smoking. Stand up when drinking your coffee. Ruskin your teeth after eating. Sit in a [...] band. Doodle or draw things on paper. Ruskin your teeth right after eating. This will [...] 02/05/2015 Document Reviewed: ExitCare Patient Information 2015 [employer]. This information is not intended to replace advice given to you by your health care provider. Make sure you discuss any questions you have with your health care provider. Follow Up With: Where: When: Onel Burris [address] [place] [address] Drive; [place] [address] Business (1) In 4 months 12/07/2015 Comments: Extracted from: Title: Office Visit Note Author: Onel Burris MD Date: 08/08/15 Assessment/Plan Chronic low back pain She has not previously had an appointment in this regard and has not had prior x-rays. The card that she received in the mail sees be more of a solicitation for buying a brace. Since there is no information about the brace available to me, I advised that she cancel her order. She will schedule appointment in the future regarding back pain if this is persistent. At this time it seemed to be more of an intermittent symptom. Nicotine addiction Options for treatment were discussed with her. Bupropion may Affect flecainide Levels. She Was Advised That since She Had Used the Nicotine Patch in the past and Had Toleratedit thatShe Should restart it. Addendum The duration of the appointment today was over 20 minutes with over 50 percent of by the appointment devoted to counseling. Additionally Chantix was discontinued. Onel Burris MD on August 08, 2015 09:52:25 WELDING MACHINE OPERATOR ARC
--- NOTE | 2017-01-13 12:11 | ERPDOC ---
Departure Disposition Decision Date: Jan 13, 2017 Disposition Decision Time: 13:00 Disposition: 01 DISCHARGED HOME, SELF-CARE Impression Impression Impression: Primary Impression: Chest pain Chest pain type: unspecified Qualified Codes: R07.9 - Chest pain, unspecified Severity: Moderate Condition: Stable Seen By: Mid-level only Referrals: DE ROMAN DO (Family) Patient Instructions: Chest Pain (ED) Problems/Meds/Labs Reviewed?: Yes Medications reviewed and manag: Yes Additional Instructions: Your labs today were all normal. Urine did not show infection. Chest xray is normal. I do want you to keep taking your medications and using your nebulizer as needed. Please follow up with Dr Roman if you are not improving at all. Follow up care ordered?: Yes Mental Status: Alert HPI - Chest Pain General Chief Complaint: Chest Pain Stated Complaint: CP Time Seen by Provider: 11:59 Source: patient Exam Limitations: no limitations HPI - Chest Pain Initial Comments She presents to ER today per EMS. States that she has just not felt well. When questioned further about how long she has not felt well she is unable to tell us when this started. She states that she had been on some Prednisone for her asthma but is no longer taking this but is unsure when she took the Prednisone. She is unable to really quantify how she does not feel well. EMS had report that she was having chest pain but she denies any chest pain. States that she is SOA but that she is always SOA. She does use inhaler and nebulizers at home. She has had some nausea but denies any vomiting or abdominal pain or diarrhea. She does see Dr Roman but has not seen her recently. Occurred At: home Onset/Timing: Gradual Duration: other (Unable to state how long she has felt like this) Activities at Onset/Context: none Location: other (no chest pain) Associated Symptoms: fatigue, nausea/vomiting (nausea, no vomiting), DENIES: abdominal pain, back pain, diaphoresis, dizziness, edema, fast HR, fever/chills , headache, heartburn, irregular HR, rash, shortness of breath, slow HR, swelling/lump in chest, syncope, weakness Chest Pain Radiation: no radiation Nitro Today/Relief: no nitro taken today Aspirin Treatment Today: unknown Allergies: Coded Allergies: Penicillins (Unverified Allergy, Unknown, UNKNOWN, 11/23/15) Past History Past Medical History Cardiac: A-fib GI: GERD, ulcers Female: pyelonephritis Neurological: TIA Surgical History General: other, tonsils Cardiac: other Family History Family PMH: FOUND: other Vaccines Hx Influenza Vaccination: No Hx Pneumococcal Vaccination: No Social History Smoking Status: Never smoker Substance Use Type: does not use Alcohol Intake: none Review of Systems Constitutional Constitutional: fatigue, weakness, DENIES: chills, dizziness, fever Eyes Vision: DENIES: blurring, double vision ENMT Ears: DENIES: drainage, pain Sinuses: DENIES: congestion, rhinorrhea Mouth/Throat: DENIES: painful swallowing, scratchy throat, sore throat Cardiovascular Cardiac: dyspnea on exertion, DENIES: chest pain, orthopnea Rhythm/Rate: DENIES: irregular beat, palpitations Vascular: pedal edema, DENIES: unilateral swelling Pulmonary Respiratory: DENIES: cough, dyspnea, sputum, tachypnea GI Upper Abdomen: nausea, DENIES: pain, vomiting Lower Abdomen: DENIES: constipation, diarrhea, pain Integumentary Skin: DENIES: rash Neurological General: DENIES: headache, numbness, tingling, weakness Physical Exam General General Nourishment: well nourished, well developed, appears stated age, no acute distress, adult General Body Habitus: well groomed Vitals and Pain First Documented Vital Signs Date Time Temp Pulse Resp B/P Pulse Ox O2 Delivery O2 Flow Rate FiO2 01/13/17 11:58 97.8 96 24 149/70 95 Room Air Weight: Kilograms: Height (feet): 5 Height (inches): 3 Triage Pain Scale: RN VS reviewed by Provider: Yes Normal Exams: ENMT: No facial trauma, nasal exudates, pharyngeal erythema, or exudates are noted Neck: Full range of motion, without adenopathy, JVD, bruits or thyromegaly Chest/Resp: Clear all maldonado, with good airflow, and symmetry bilaterally CV: Regular rate and rhythm, without murmur or gallop, Pulses 2+ all extremities, capillary refill, <2 seconds all ext., no pedal edema noted Abdomen: Bowel sounds positive, soft, non-tender, non-distended, no hepatosplenomegaly, masses or bruits noted Lymphatic: No lymphadenopathy, or lymphedema noted Integumentary: No rashes, hives, or bruising noted Neurologic: Patient is alert, and oriented, cranial nerves, motor/sensory/ cerebellar, exams w/o gross deficits, to observation Psychiatric: Patient exhibits, appropriate attention, emotion and affect Differential Diagnoses Considering: Acute [place], Anxiety/Panic, Angina, Other (UTI, pneumonia, asthma exacerbation) Progress Results/Orders Orders Procedure Category Date Status Time EKG EKG 01/13/17 Taken Iv Lock (Ed Only) EDM 01/13/17 Transmitted 12:06 Chest, Pa & Lateral RAD 01/13/17 Resulted Cbc W/Auto LAB 01/13/17 Complete Diff-Reflex Manual Cmp - Comprehensive LAB 01/13/17 Complete Metabolic Troponin I W LAB 01/13/17 Complete Hemolysis Index Ua, Dip Wreflex LAB 01/13/17 Complete Microsc & Construction Person 12:08 Lab Results Laboratory Tests Test 01/13/17 12:17 01/13/17 12:50 White Blood Count 8.0T/MM3 Red Blood Count 5.06M/MM3 Hemoglobin 14.8GM/DL Hematocrit 45.9% Mean Corpuscular Volume 90.7UM3 Mean Corpuscular Hemoglobin 29.2UUG Mean Corpuscular Hemoglobin Concent 32.2GM/DL RDW Standard Deviation 46.1FL Platelet Count 214T/MM3 Mean Platelet Volume 10.1UM3 Immature Granulocyte % (Auto) 0.3% Neutrophils (%) (Auto) 73.0% Lymphocytes (%) (Auto) 19.2% Monocytes (%) (Auto) 5.8% Eosinophils (%) (Auto) 1.3% Basophils (%) (Auto) 0.4% Absolute Immature Granulocyte (auto 0.02T/MM3 Absolute Neutrophils (auto) 5.8T/MM3 Absolute Lymphocytes (auto) 1.5T/MM3 Absolute Monocytes (auto) 0.5T/MM3 Absolute Eosinophils (auto) 0.1T/MM3 Absolute Basophils (auto) 0.0T/MM3 Turbidity < 20 Sodium Level 141MEQ/L Potassium Level 4.2MEQ/L Chloride Level 107MEQ/L Carbon Dioxide Level 20MEQ/L Anion Gap 14MEQ/L Blood Urea Nitrogen 12.0MG/DL Creatinine 0.7MG/DL Glomerular Filtration Rate Calc 82 BUN/Creatinine Ratio 17RATIO Glucose Level 96MG/DL Calculated Osmolality 271MOSM/KG Calcium Level 9.8MG/DL Total Bilirubin 0.80MG/DL Icterus Index < 2 Aspartate Amino Transf (AST/SGOT) 30U/L Alanine Aminotransferase (ALT/SGPT) 33U/L Alkaline Phosphatase 96U/L Troponin I < 0.012ng/ml Total Protein 7.1G/DL Albumin 4.2G/DL Globulin 2.9G/DL Albumin/Globulin Ratio 1.4RATIO Chemistry Specimen Hemolysis < 15 Urine Collection Type Cleancatch-midstream Urine Color Yellow Urine Turbidity Clear Urine pH 5.5 Urine Specific [place] <=1.005 Urine Protein Negative Urine Glucose (UA) Negative Urine Ketones 1+ Urine Blood Negative Urine Nitrite Negative Urine Bilirubin Negative Urine Urobilinogen 0.2EU/DL Urine Leukocyte Esterase Negative Urinalysis Comment Microscopic not ind. Progress Progress CBC, CMP, troponin, and UA today are normal. Her chest xray does show emphysematous changes but no pneumonia. EKG without ST changes or ectopy. Vitals have been stable while in ER. I did discuss that the results of the labs and xray have not indicated why she is not feeling well but she states that she is feeling well enough to go home. Is in NAD. Will have her follow up with her PCP if any further concerns. Xray Xray : Reason for Exam: dyspnea Xray: CXR PA/Lat Interpretation: Normal FANNY TALAMANTES APRN Jan 13, 2017 12:11
--- NOTE | 2017-01-13 12:23 | NUR ---
TO [facility] PER CART
[2017-01-13 12:29] LABS: BASOPHILS % (AUTO) 0.4 % (0-2); EOSINOPHILS # (AUTO) 0.1 T/MM3 (0-0.5); EOSINOPHILS % (AUTO) 1.3 % (0-4); HCT - HEMATOCRIT 45.9 % (36-46); HGB - HEMOGLOBIN 14.8 GM/DL (12-16); IMMATURE GRANULOCYTE # (AUTO) 0.02 T/MM3 (0.00-0.03); IMMATURE GRANULOCYTE % (AUTO) 0.3 % (0.0-0.5); LYMPHOCYTES # (AUTO) 1.5 T/MM3 (1-4.8); LYMPHOCYTES % (AUTO) 19.2 % (23-45); MEAN CORPUSCULAR HGB 29.2 UUG (26-34); MEAN CORPUSCULAR HGB CONC(MCHC 32.2 GM/DL (31-37); MEAN CORPUSCULAR VOLUME 90.7 UM3 (80-100); MEAN PLATELET VOLUME 10.1 UM3 (9.4-12.4); MONOCYTES # (AUTO) 0.5 T/MM3 (0-0.8); MONOCYTES % (AUTO) 5.8 % (0-9.0); NEUTROPHILS #(AUTO)-ABSOLUTE 5.8 T/MM3 (1.8-7.7); RED BLOOD COUNT 5.06 M/MM3 (4.00-5.20)
[2017-01-13 12:34] LABS: ALBUMIN 4.2 G/DL (3.5-5.0); ALBUMIN/GLOBULIN RATIO 1.4 RATIO (1.1-2.2); ALKALINE PHOSPHATASE 96 U/L (38-126); ALT (SGPT) 33 U/L (9-52); ANION GAP 14 MEQ/L (5-15); AST (SGOT) 30 U/L (14-36); BUN/CREATININE RATIO 17 RATIO (6-26); CALCIUM 9.8 MG/DL (8.4-10.2); CHLORIDE 107 MEQ/L (98-107); CO2 - CARBON DIOXIDE 20 MEQ/L (22-30); CREATININE 0.7 MG/DL (0.7-1.2); GLOMERULAR FILTRATION RATE 82; GLUCOSE 96 MG/DL (65-110); POTASSIUM 4.2 MEQ/L (3.6-5); SODIUM 141 MEQ/L (134-144); TOTAL PROTEIN 7.1 G/DL (6.3-8.2)
--- NOTE | 2017-01-13 12:40 | NUR ---
RETURNED FROM [facility]
[2017-01-13] MEDS ORDERED: FLEC150T2 PO (12:49)
[2017-01-13] MEDS ORDERED: LORA10TA44 PO (12:49)
[2017-01-13] MEDS ORDERED: POTA2TAB18 PO (12:51)
[2017-01-13] MEDS ORDERED: FLUT1DIS3 ORAL INH (12:51)
[2017-01-13] MEDS ORDERED: IPRA3AMP AEROSOL (12:51)
--- NOTE | 2017-01-13 12:51 | DI ---
INDICATION: ITS.REASON: chest pain, dyspnea PROCEDURE: CHEST 2-VIEWS UPRIGHT (PA \T\ LAT) Encounter: Initial COMPARISON: None FINDINGS: Increased linear markings in the left mid to lower lung field and in the right base. Emphysema seen in the right apex. No pneumothorax or pleural effusion. Heart size and mediastinal contours are within normal limits. Pulmonary vascularity appears normal. Impression: Emphysema without definite focal pneumonia or congestive failure. .
--- NOTE | 2017-01-13 12:54 | NUR ---
OUTPUT VOIDED 400 CC CLOUDY URINE
[2017-01-13 12:55] LABS: BLOOD, URINE NEGATIVE (NEGATIVE); COLOR,URINE YELLOW (YELLOW); LEUKOCYTE ESTERASE ,URINE NEGATIVE (NEGATIVE); NITRITE,URINE NEGATIVE (NEGATIVE); UROBILINOGEN,URINE 0.2 EU/DL (NORMAL)
[2017-01-13 13:10] VITALS: BP 131/74; PULSE 97; RESP 28; O2SAT 94
--- NOTE | 2017-01-13 13:10 | NUR ---
DISMISSAL INSTRUCTIONS REVIEWED. AMB W FRIEND ACCOMPANIED BY RN TO EXIT.
--- OUTSIDE RECORDS SUMMARY | 2017-01-13 13:31 | XMS REPORT | Continuity of Care Document ---
Author Author [facility] Organization [facility] Address Unknown Phone Unavailable Support Name Relationship Address Phone TRISTAN PANG FACS, MD Caregiver [address] [place] [address] [address] [place], [place] [phone] NIKKI DELGADO MD Caregiver [address] [place] [address] [place] [address] [phone] [place] Next Of Kin [address] [place] [address] Insurance Providers Payer Name Policy Number Subscriber Name Relationship Medicareadvantra Ppo [id number] RolandAvis 18 Self Advance Directives Directive Response [...] F (96.8 - 99.1) Temperature (Calculated Celsius) 36.92105 degrees C (36.0 - 37.3) Temperature Source [...] CWS Encounters Encounter Location Date/Time Registered Clinic [facility] 11/20/14 5:23pm
== END 2017-01-13 13:10 | disposition home or self-care (01) ==
LOC: ED 11:56
DX: R07.89 Other chest pain (principal); R53.83 Other fatigue; R11.0 Nausea; R06.00 Dyspnea, unspecified; I48.91 Unspecified atrial fibrillation; Z79.01 Long term (current) use of anticoagulants
CPT/HCPCS: 36415; 80053; 81003; 84484; 85025; 93005